=== PATIENT | male | born 1965 | race Caucasian/White ===

== ENCOUNTER 2018-11-27 16:03 | Inpatient (IN) | payer OTHER ==
[2018-11-27] MEDS: hydrALAzine 20 MG INJ IV (17:16)
[2018-11-27] MEDS: NICARDipine HCL 30 MG CAPSULE PO (17:17)
[2018-11-27 17:22] LABS: ADD MAN DIFF? NO
[2018-11-27 17:27] LABS: BASOPHIL # 0.1 10^3/ul (0.0-0.1); BASOPHILS % 0.8 % (0.0-2.0); EOSINOPHILS # 0.4 10^3/ul (0.0-0.5); EOSINOPHILS % 4.1 % (0.0-7.0); HEMATOCRIT 31.7 % (42.0-52.0); HEMOGLOBIN 10.6 g/dl (14.0-18.0); LYMPHOCYTES # 1.6 10^3/ul (0.8-2.9); LYMPHOCYTES % 17.7 % (15.0-51.0); MEAN CORPUSCULAR HEMOGLOBIN 27.7 pg (29.0-33.0); MEAN CORPUSCULAR HGB CONC 33.4 g/dl (32.0-37.0); MEAN PLATELET VOLUME 10.8 fl (7.4-10.4); MONOCYTE # 0.8 10^3/ul (0.3-0.9); MONOCYTES % 8.8 % (0.0-11.0); NEUTROPHIL # 6.2 10^3/ul (1.6-7.5); NEUTROPHILS % 68.1 % (39.0-77.0); PLATELET COUNT 214 10^3/UL (140-415); RED BLOOD COUNT 3.82 10^6/ul (4.70-6.10); RED CELL DISTRIBUTION WIDTH 13.5 % (11.5-14.5)
[2018-11-27 17:27] LABS: WHITE BLOOD COUNT 9.1 10^3/ul (4.8-10.8)
[2018-11-27 17:47] LABS: ALANINE AMINOTRANSFERASE 23 IU/L (13-69); ALBUMIN 2.9 g/dl (3.3-4.9); ALBUMIN/GLOBULIN RATIO 0.82; ALKALINE PHOSPHATASE 165 IU/L (42-121); ANION GAP 1 (5-13); ASPARTATE AMINO TRANSFERASE 35 IU/L (15-46); BILIRUBIN,INDIRECT 0.1 mg/dl (0-1.1); BILIRUBIN,TOTAL 0.1 mg/dl (0.2-1.3); BLOOD UREA NITROGEN 24 mg/dl (7-20); CARBON DIOXIDE 32 mmol/L (21-31); CHLORIDE 106 mmol/L (97-110); CREATININE 2.71 mg/dl (0.61-1.24); Estimated GFR 25 mL/min (>60); GLUCOSE 219 mg/dl (70-220); SODIUM 139 mmol/L (135-144); TOTAL PROTEIN 6.4 g/dl (6.1-8.1)
[2018-11-27 17:59] LABS: TROPONIN-I 0.018 ng/ml (0.000-0.120)
[2018-11-27 18:06] LABS: POTASSIUM 2.6 mmol/L (3.5-5.1)
[2018-11-27] MEDS: POTASSIUM CHLORIDE (SR) 20 MEQ TAB PO (18:19)
[2018-11-27] MEDS: POTASSIUM CHLORIDE 100 ML IVPB (18:19)
[2018-11-27] MEDS ORDERED: ACETAMINOPHEN 325 MG TAB PO (22:30)
[2018-11-27] MEDS ORDERED: ONDANSETRON 4 MG INJ IV (22:30)
[2018-11-27] MEDS ORDERED: DEXTROSE 50% 50 ML SYRINGE IV ×2 (23:45)
[2018-11-27] MEDS ORDERED: GLUCAGON 1 MG INJ IM (23:45)
[2018-11-27] MEDS ORDERED: GLUCOSE GEL 15 GRAM TUBE BUCCAL (23:45)
[2018-11-27] MEDS ORDERED: GLUCOSE GEL 15 GRAM TUBE PO ×2 (23:45)
[2018-11-28] MEDS ORDERED: NACL 0.9% 3 ML SYG IV
[2018-11-28] MEDS ORDERED: HYDROCODONE/APAP (5/325) TAB PO
[2018-11-28 00:26] LABS: ANION GAP 5 (5-13); BLOOD UREA NITROGEN 25 mg/dl (7-20); CALCIUM 7.8 mg/dl (8.4-10.2); CARBON DIOXIDE 29 mmol/L (21-31); CHLORIDE 108 mmol/L (97-110); CREATININE 2.56 mg/dl (0.61-1.24); Estimated GFR 26 mL/min (>60); GLUCOSE 221 mg/dl (70-220); SODIUM 142 mmol/L (135-144)
[2018-11-28 00:37] LABS: TROPONIN-I 0.033 ng/ml (0.000-0.120)
[2018-11-28 00:39] LABS: POTASSIUM 2.9 mmol/L (3.5-5.1)
[2018-11-28] MEDS: POTASSIUM CHLORIDE (SR) 20 MEQ TAB PO ×2 (01:10→08:21)
[2018-11-28] MEDS: INSULIN GLARGINE [LANTus] (100 UNITS/ML) SYG SC ×2 (01:16→20:55)
[2018-11-28] MEDS: NIFEdipine 10 MG CAP PO ×2 (05:35→11:54)
[2018-11-28 06:46] LABS: ADD MAN DIFF? NO
[2018-11-28 06:51] LABS: WHITE BLOOD COUNT 6.9 10^3/ul (4.8-10.8)
[2018-11-28 06:51] LABS: BASOPHIL # 0.1 10^3/ul (0.0-0.1); BASOPHILS % 0.7 % (0.0-2.0); EOSINOPHILS # 0.2 10^3/ul (0.0-0.5); EOSINOPHILS % 3.5 % (0.0-7.0); HEMATOCRIT 27.6 % (42.0-52.0); HEMOGLOBIN 9.1 g/dl (14.0-18.0); LYMPHOCYTES # 1.2 10^3/ul (0.8-2.9); MEAN CORPUSCULAR HEMOGLOBIN 27.7 pg (29.0-33.0); MEAN CORPUSCULAR VOLUME 83.9 fl (82.0-101.0); MEAN PLATELET VOLUME 11.2 fl (7.4-10.4); MONOCYTE # 0.6 10^3/ul (0.3-0.9); NEUTROPHIL # 4.8 10^3/ul (1.6-7.5); NEUTROPHILS % 69.2 % (39.0-77.0); PLATELET COUNT 187 10^3/UL (140-415); RED BLOOD COUNT 3.29 10^6/ul (4.70-6.10); RED CELL DISTRIBUTION WIDTH 13.4 % (11.5-14.5)
[2018-11-28 07:13] LABS: HEMOGLOBIN A1C 8.8 % (0-5.9)
[2018-11-28 07:16] LABS: ALANINE AMINOTRANSFERASE 24 IU/L (13-69); ALBUMIN 2.3 g/dl (3.3-4.9); ALBUMIN/GLOBULIN RATIO 0.76; ALKALINE PHOSPHATASE 122 IU/L (42-121); ANION GAP 4 (5-13); ASPARTATE AMINO TRANSFERASE 23 IU/L (15-46); BILIRUBIN,INDIRECT 0.1 mg/dl (0-1.1); BILIRUBIN,TOTAL 0.1 mg/dl (0.2-1.3); BLOOD UREA NITROGEN 24 mg/dl (7-20); CALCIUM 7.8 mg/dl (8.4-10.2); CARBON DIOXIDE 28 mmol/L (21-31); CHLORIDE 111 mmol/L (97-110); CREATININE 2.75 mg/dl (0.61-1.24); Estimated GFR 24 mL/min (>60); GLUCOSE 165 mg/dl (70-220); SODIUM 143 mmol/L (135-144); TOTAL PROTEIN 5.3 g/dl (6.1-8.1)
[2018-11-28 07:21] LABS: POTASSIUM 2.9 mmol/L (3.5-5.1)
[2018-11-28 07:22] LABS: ADD UMIC YES; UR ASCORBIC ACID NEGATIVE (NEGATIVE); UR BILIRUBIN (Dip) NEGATIVE (NEGATIVE); UR BLOOD (Dip) NEGATIVE (NEGATIVE); UR CLARITY CLEAR (CLEAR); UR COLOR YELLOW (YELLOW); UR GLUCOSE (Dip) 3+ mg/dL (NEGATIVE); UR KETONES (Dip) NEGATIVE (NEGATIVE); UR LEUKOCYTE ESTERASE (Dip) NEGATIVE Leu/ul (NEGATIVE); UR NITRITE (Dip) NEGATIVE (NEGATIVE); UR RBC 3 /HPF (0-5); UR SPECIFIC GRAVITY (Dip) 1.011 (1.003-1.030); UR TOTAL PROTEIN (Dip) 3+ mg/dl (NEGATIVE); UR UROBILINOGEN (Dip) NEGATIVE (NEGATIVE); UR WBC 1 /HPF (0-5)
[2018-11-28 07:24] LABS: IRON 32 ug/dl (35-150)
[2018-11-28 07:33] LABS: % IRON SATURATION 17 % SAT (22-52); TOTAL IRON BINDING CAPACITY 189 ug/dl (241-421)
[2018-11-28] MEDS: MINOXIDIL 2.5 MG TAB PO (08:20)
[2018-11-28] MEDS: INSULIN ASPART [NOVOLOG] 3 ML PEN SC ×7 (08:40→20:43)
[2018-11-28] MEDS: HEPARIN 5,000 UNIT/1 ML VIAL SC ×2 (12:13→20:55)
[2018-11-28] MEDS: MAGNESIUM SULFATE 1 GM/D5W 100 ML IVPB (15:46)
[2018-11-28 18:06] LABS: POTASSIUM 3.1 mmol/L (3.5-5.1)
[2018-11-28 18:06] LABS: MAGNESIUM 2.1 mg/dl (1.7-2.5)
[2018-11-28] MEDS: NIFEdipine (XL) 30 MG TAB PO (20:44)
[2018-11-28 22:54] LABS: ADD UMIC YES; UR ASCORBIC ACID NEGATIVE (NEGATIVE); UR BACTERIA FEW /HPF (NONE SEEN); UR BILIRUBIN (Dip) NEGATIVE (NEGATIVE); UR BLOOD (Dip) NEGATIVE (NEGATIVE); UR CLARITY SLIGHTLY CLOUDY (CLEAR); UR COLOR YELLOW (YELLOW); UR GLUCOSE (Dip) 3+ mg/dL (NEGATIVE); UR KETONES (Dip) NEGATIVE (NEGATIVE); UR LEUKOCYTE ESTERASE (Dip) NEGATIVE Leu/ul (NEGATIVE); UR MUCUS FEW /HPF (NONE SEEN); UR NITRITE (Dip) NEGATIVE (NEGATIVE); UR RBC 6 /HPF (0-5); UR SPECIFIC GRAVITY (Dip) 1.016 (1.003-1.030); UR TOTAL PROTEIN (Dip) 3+ mg/dl (NEGATIVE); UR UROBILINOGEN (Dip) NEGATIVE (NEGATIVE); UR WBC 9 /HPF (0-5)
[2018-11-28 23:01] LABS: SODIUM,URINE RANDOM 38 mmol/L (30-90)
[2018-11-28 23:01] LABS: CREATININE,URINE RANDOM 121.91 mg/dl (20-370)
[2018-11-29 06:56] LABS: ADD MAN DIFF? NO
[2018-11-29 07:02] LABS: BASOPHILS % 0.5 % (0.0-2.0); EOSINOPHILS # 0.2 10^3/ul (0.0-0.5); EOSINOPHILS % 2.8 % (0.0-7.0); HEMATOCRIT 27.8 % (42.0-52.0); HEMOGLOBIN 9.2 g/dl (14.0-18.0); LYMPHOCYTES # 1.4 10^3/ul (0.8-2.9); MEAN CORPUSCULAR HEMOGLOBIN 28.1 pg (29.0-33.0); MEAN CORPUSCULAR HGB CONC 33.1 g/dl (32.0-37.0); MEAN PLATELET VOLUME 11.1 fl (7.4-10.4); MONOCYTE # 0.6 10^3/ul (0.3-0.9); MONOCYTES % 7.6 % (0.0-11.0); NEUTROPHIL # 5.9 10^3/ul (1.6-7.5); NEUTROPHILS % 71.6 % (39.0-77.0); PLATELET COUNT 201 10^3/UL (140-415); RED BLOOD COUNT 3.27 10^6/ul (4.70-6.10); RED CELL DISTRIBUTION WIDTH 13.5 % (11.5-14.5)
[2018-11-29 07:02] LABS: WHITE BLOOD COUNT 8.3 10^3/ul (4.8-10.8)
[2018-11-29 07:37] LABS: PHOSPHORUS 4.1 mg/dl (2.5-4.9)
[2018-11-29 07:38] LABS: CHOL/HDL RATIO 5.4 RATIO; HDL CHOLESTEROL 34 mg/dl (28-71); LDL CHOLESTEROL,CALCULATED 114 mg/dl; TRIGLYCERIDES 188 mg/dl (0-149)
[2018-11-29 07:38] LABS: CHOLESTEROL 186 mg/dl (100-200)
[2018-11-29] MEDS: INSULIN ASPART [NOVOLOG] 3 ML PEN SC ×7 (07:55→20:36)
[2018-11-29 07:59] LABS: ANION GAP 6 (5-13); BLOOD UREA NITROGEN 28 mg/dl (7-20); CALCIUM 8.2 mg/dl (8.4-10.2); CARBON DIOXIDE 27 mmol/L (21-31); CHLORIDE 108 mmol/L (97-110); CREATININE 3.18 mg/dl (0.61-1.24); Estimated GFR 20 mL/min (>60); GLUCOSE 104 mg/dl (70-220); POTASSIUM 3.1 mmol/L (3.5-5.1); SODIUM 141 mmol/L (135-144)
[2018-11-29] MEDS: MINOXIDIL 2.5 MG TAB PO (08:16)
[2018-11-29] MEDS: NIFEdipine (XL) 30 MG TAB PO ×2 (08:17→20:38)
[2018-11-29] MEDS: HEPARIN 5,000 UNIT/1 ML VIAL SC ×2 (09:14→21:01)
[2018-11-29 09:45] LABS: HAAIG REFLEX REFLEX FILED
[2018-11-29 10:20] LABS: COMPLEMENT C3 96 mg/dl (88-165); COMPLEMENT C4 41 mg/dl (14-44)
[2018-11-29 10:47] LABS: HEPATITIS B SURFACE ANTIGEN NEGATIVE (NEGATIVE)
[2018-11-29] MEDS: BUMETANIDE 1 MG TAB PO (10:56)
[2018-11-29] MEDS: POTASSIUM CHLORIDE (SR) 20 MEQ TAB PO ×2 (10:56→22:37)
[2018-11-29 11:04] LABS: HEPATITIS B CORE ANTIBODY NEGATIVE (NEGATIVE); HEPATITIS C VIRAL ANTIBODY NEGATIVE (NEGATIVE)
[2018-11-29 14:14] LABS: POTASSIUM 3.2 mmol/L (3.5-5.1)
[2018-11-29 16:48] LABS: RHEUMATOID FACTOR NEGATIVE (NEGATIVE)
[2018-11-29] MEDS: INSULIN GLARGINE [LANTus] (100 UNITS/ML) SYG SC (20:45)
[2018-11-30 06:06] LABS: ADD MAN DIFF? NO
[2018-11-30 06:25] LABS: BASOPHIL # 0.1 10^3/ul (0.0-0.1); BASOPHILS % 0.6 % (0.0-2.0); EOSINOPHILS % 0.5 % (0.0-7.0); HEMATOCRIT 29.6 % (42.0-52.0); HEMOGLOBIN 9.9 g/dl (14.0-18.0); LYMPHOCYTES % 11.8 % (15.0-51.0); MEAN CORPUSCULAR HGB CONC 33.4 g/dl (32.0-37.0); MEAN CORPUSCULAR VOLUME 83.9 fl (82.0-101.0); MEAN PLATELET VOLUME 10.9 fl (7.4-10.4); MONOCYTE # 0.4 10^3/ul (0.3-0.9); MONOCYTES % 4.2 % (0.0-11.0); NEUTROPHIL # 6.8 10^3/ul (1.6-7.5); NEUTROPHILS % 82.1 % (39.0-77.0); PLATELET COUNT 216 10^3/UL (140-415); RED BLOOD COUNT 3.53 10^6/ul (4.70-6.10); RED CELL DISTRIBUTION WIDTH 13.4 % (11.5-14.5)
[2018-11-30 06:25] LABS: WHITE BLOOD COUNT 8.2 10^3/ul (4.8-10.8)
[2018-11-30 06:28] LABS: PHOSPHORUS 4.9 mg/dl (2.5-4.9)
[2018-11-30 06:28] LABS: MAGNESIUM 1.9 mg/dl (1.7-2.5)
[2018-11-30 06:43] LABS: ALANINE AMINOTRANSFERASE 20 IU/L (13-69); ALBUMIN 2.5 g/dl (3.3-4.9); ALBUMIN/GLOBULIN RATIO 0.78; ALKALINE PHOSPHATASE 128 IU/L (42-121); AMYLASE 50 U/L (11-123); ANION GAP 3 (5-13); ASPARTATE AMINO TRANSFERASE 29 IU/L (15-46); BILIRUBIN,INDIRECT 0.1 mg/dl (0-1.1); BILIRUBIN,TOTAL 0.1 mg/dl (0.2-1.3); BLOOD UREA NITROGEN 32 mg/dl (7-20); CALCIUM 8.4 mg/dl (8.4-10.2); CARBON DIOXIDE 27 mmol/L (21-31); CHLORIDE 107 mmol/L (97-110); CREATININE 3.39 mg/dl (0.61-1.24); Estimated GFR 19 mL/min (>60); GLUCOSE 125 mg/dl (70-220); LIPASE 22 U/L (23-300); POTASSIUM 3.7 mmol/L (3.5-5.1); SODIUM 137 mmol/L (135-144); TOTAL PROTEIN 5.7 g/dl (6.1-8.1)
[2018-11-30] MEDS: INSULIN ASPART [NOVOLOG] 3 ML PEN SC ×7 (07:55→20:51)
[2018-11-30] MEDS: MINOXIDIL 2.5 MG TAB PO (08:21)
[2018-11-30] MEDS: BUMETANIDE 1 MG TAB PO (08:22)
[2018-11-30] MEDS: NIFEdipine (XL) 30 MG TAB PO ×2 (08:22→20:43)
[2018-11-30] MEDS: HEPARIN 5,000 UNIT/1 ML VIAL SC ×2 (08:39→20:49)
[2018-11-30 11:41] LABS: MYELOPEROXIDASE ANTIBODY <1.0 AI; PROTEINASE-3 ANTIBODY <1.0 AI
[2018-11-30] MEDS: INSULIN GLARGINE [LANTus] (100 UNITS/ML) SYG SC (20:49)
[2018-12-01 06:02] LABS: ADD MAN DIFF? NO
[2018-12-01 06:06] LABS: BASOPHILS % 0.4 % (0.0-2.0); EOSINOPHILS # 0.3 10^3/ul (0.0-0.5); EOSINOPHILS % 4.1 % (0.0-7.0); HEMATOCRIT 24.6 % (42.0-52.0); HEMOGLOBIN 8.1 g/dl (14.0-18.0); LYMPHOCYTES # 1.6 10^3/ul (0.8-2.9); LYMPHOCYTES % 21.6 % (15.0-51.0); MEAN CORPUSCULAR HEMOGLOBIN 27.7 pg (29.0-33.0); MEAN CORPUSCULAR HGB CONC 32.9 g/dl (32.0-37.0); MEAN CORPUSCULAR VOLUME 84.2 fl (82.0-101.0); MEAN PLATELET VOLUME 10.4 fl (7.4-10.4); MONOCYTE # 0.8 10^3/ul (0.3-0.9); NEUTROPHIL # 4.8 10^3/ul (1.6-7.5); NEUTROPHILS % 63.6 % (39.0-77.0); PLATELET COUNT 169 10^3/UL (140-415); RED BLOOD COUNT 2.92 10^6/ul (4.70-6.10); RED CELL DISTRIBUTION WIDTH 13.3 % (11.5-14.5)
[2018-12-01 06:06] LABS: WHITE BLOOD COUNT 7.6 10^3/ul (4.8-10.8)
[2018-12-01 06:44] LABS: ANION GAP 4 (5-13); BLOOD UREA NITROGEN 38 mg/dl (7-20); CALCIUM 8.1 mg/dl (8.4-10.2); CARBON DIOXIDE 26 mmol/L (21-31); CHLORIDE 108 mmol/L (97-110); Estimated GFR 20 mL/min (>60); GLUCOSE 106 mg/dl (70-220); POTASSIUM 3.4 mmol/L (3.5-5.1); SODIUM 138 mmol/L (135-144)
[2018-12-01 06:52] LABS: MAGNESIUM 1.9 mg/dl (1.7-2.5)
[2018-12-01 06:52] LABS: PHOSPHORUS 4.7 mg/dl (2.5-4.9)
[2018-12-01] MEDS: POTASSIUM CHLORIDE (SR) 10 MEQ TAB PO (07:32)
[2018-12-01] MEDS: INSULIN ASPART [NOVOLOG] 3 ML PEN SC ×4 (07:32→12:31)
[2018-12-01] MEDS: BUMETANIDE 1 MG TAB PO (08:33)
[2018-12-01] MEDS: NIFEdipine (XL) 30 MG TAB PO (08:34)
[2018-12-01] MEDS: MINOXIDIL 2.5 MG TAB PO (08:34)
[2018-12-01] MEDS: HEPARIN 5,000 UNIT/1 ML VIAL SC (08:42)
[2018-12-02 09:56] LABS: ALDOSTERONE 2 ng/dL; RENIN, PLASMA 0.42 ng/mL/h (0.25-5.82)
[2018-12-02 14:37] LABS: ANA SCREEN NEGATIVE (NEGATIVE)
[2018-12-02 16:06] LABS: CREATININE, RANDOM URINE 121 mg/dL (20-320); MICROALBUMIN/CREATININE RATIO 4950 (<30)
[2018-12-03 13:17] LABS: ANTI-DNA (DOUBLE STRANDED) <95 U/mL (< 301)
[2018-12-03 16:27] LABS: ANCA SCREEN NEGATIVE (NEGATIVE)
== END 2018-12-01 13:47 | disposition home or self-care (01) | DRG 304 ==
LOC: E/R 16:03 → TEL 22:13
PROVIDERS: Internal Medicine
DX: I16.0 Hypertensive urgency (principal); N17.0 Acute kidney failure with tubular necrosis; I12.9 Hypertensive chronic kidney disease with stage 1 through stage 4 chronic kidney disease, or unspecified chronic kidney disease; E11.21 Type 2 diabetes mellitus with diabetic nephropathy; N18.9 Chronic kidney disease, unspecified; E87.6 Hypokalemia; E66.9 Obesity, unspecified; Z68.31 Body mass index [BMI] 31.0-31.9, adult; E11.65 Type 2 diabetes mellitus with hyperglycemia; D50.9 Iron deficiency anemia, unspecified; E11.22 Type 2 diabetes mellitus with diabetic chronic kidney disease; E03.9 Hypothyroidism, unspecified; R07.9 Chest pain, unspecified; R10.9 Unspecified abdominal pain
CPT/HCPCS: 36415; 71045; 76705; 76775; 80048; 80053; 80061; 81001; 81003; 82043; 82088; 82150; 82533; 82595; 82728; 82962; 83036; 83540; 83690; 83735; 84100; 84132; 84155; 84244; 84300; 84484; 85025; 86021; 86038; 86160; 86226; 86430; 86704; 86709; 86803; 87340; 93005; 93306; 93970; 96374; 96375; 99285-25

== ENCOUNTER 2018-12-03 15:39 | Observation (INO) | payer OTHER ==
[2018-12-03 16:40] LABS: ADD MAN DIFF? NO
[2018-12-03 16:44] LABS: WHITE BLOOD COUNT 8.5 10^3/ul (4.8-10.8)
[2018-12-03 16:45] LABS: BASOPHILS % 0.5 % (0.0-2.0); EOSINOPHILS # 0.2 10^3/ul (0.0-0.5); EOSINOPHILS % 2.4 % (0.0-7.0); HEMATOCRIT 27.5 % (42.0-52.0); MEAN CORPUSCULAR HEMOGLOBIN 28.1 pg (29.0-33.0); MEAN CORPUSCULAR HGB CONC 32.7 g/dl (32.0-37.0); MEAN CORPUSCULAR VOLUME 85.9 fl (82.0-101.0); MEAN PLATELET VOLUME 11.1 fl (7.4-10.4); MONOCYTE # 0.9 10^3/ul (0.3-0.9); MONOCYTES % 10.1 % (0.0-11.0); NEUTROPHIL # 6.3 10^3/ul (1.6-7.5); NEUTROPHILS % 74.3 % (39.0-77.0); PLATELET COUNT 179 10^3/UL (140-415); RED CELL DISTRIBUTION WIDTH 13.4 % (11.5-14.5)
[2018-12-03 17:05] LABS: ANION GAP 5 (5-13); BLOOD UREA NITROGEN 44 mg/dl (7-20); CALCIUM 8.4 mg/dl (8.4-10.2); CARBON DIOXIDE 23 mmol/L (21-31); CHLORIDE 110 mmol/L (97-110); CREATININE 3.61 mg/dl (0.61-1.24); Estimated GFR 18 mL/min (>60); GLUCOSE 131 mg/dl (70-220); POTASSIUM 4.1 mmol/L (3.5-5.1); SODIUM 138 mmol/L (135-144)
[2018-12-03 17:26] LABS: INR 1.01; PROTIME 13.4 Sec (11.9-14.9)
[2018-12-03] MEDS ORDERED: hydrALAzine 20 MG INJ IV (19:00)
[2018-12-03] MEDS ORDERED: ACETAMINOPHEN 325 MG TAB PO (19:00)
[2018-12-03] MEDS ORDERED: HYDROCODONE/APAP (5/325) TAB PO (19:00)
[2018-12-03] MEDS ORDERED: morphine 2 MG INJ IV (19:00)
[2018-12-03] MEDS ORDERED: NACL 0.9% 3 ML SYG IV (19:00)
[2018-12-03] MEDS ORDERED: LORAZEPAM 2 MG INJ IV (19:00)
[2018-12-03] MEDS ORDERED: NITROGLYCERIN (SL) 0.4 MG TAB SL (19:00)
[2018-12-03] MEDS ORDERED: MAGNESIUM HYDROXIDE 30ML CUP PO (19:00)
[2018-12-03] MEDS ORDERED: ONDANSETRON 4 MG INJ IV (19:00)
[2018-12-03] MEDS ORDERED: ALBUTEROL/IPRATROPIUM (NEB) 3 ML AMP HHN (19:00)
[2018-12-03] MEDS ORDERED: DOCUSATE SODIUM 100 MG CAP PO (19:00)
[2018-12-03 20:02] LABS: FREE T4 (FREE THYROXINE) 1.26 ng/dl (0.64-1.79)
[2018-12-03] MEDS ORDERED: GLUCOSE GEL 15 GRAM TUBE PO ×2 (23:00)
[2018-12-03] MEDS ORDERED: GLUCOSE GEL 15 GRAM TUBE BUCCAL (23:00)
[2018-12-03] MEDS ORDERED: GLUCAGON 1 MG INJ IM (23:00)
[2018-12-03] MEDS ORDERED: DEXTROSE 50% 50 ML SYRINGE IV ×2 (23:00)
[2018-12-04 06:05] LABS: ADD MAN DIFF? NO
[2018-12-04 06:08] LABS: BASOPHILS % 0.5 % (0.0-2.0); EOSINOPHILS # 0.3 10^3/ul (0.0-0.5); EOSINOPHILS % 5.3 % (0.0-7.0); HEMOGLOBIN 8.2 g/dl (14.0-18.0); LYMPHOCYTES # 1.2 10^3/ul (0.8-2.9); LYMPHOCYTES % 18.1 % (15.0-51.0); MEAN CORPUSCULAR HEMOGLOBIN 27.9 pg (29.0-33.0); MEAN CORPUSCULAR HGB CONC 32.8 g/dl (32.0-37.0); MEAN PLATELET VOLUME 11.2 fl (7.4-10.4); MONOCYTE # 0.8 10^3/ul (0.3-0.9); MONOCYTES % 12.2 % (0.0-11.0); NEUTROPHIL # 4.1 10^3/ul (1.6-7.5); NEUTROPHILS % 63.6 % (39.0-77.0); PLATELET COUNT 164 10^3/UL (140-415); RED BLOOD COUNT 2.94 10^6/ul (4.70-6.10); RED CELL DISTRIBUTION WIDTH 13.6 % (11.5-14.5)
[2018-12-04 06:08] LABS: WHITE BLOOD COUNT 6.5 10^3/ul (4.8-10.8)
[2018-12-04 06:31] LABS: HEMOGLOBIN A1C 8.1 % (0-5.9)
[2018-12-04 07:28] LABS: CHOL/HDL RATIO 5.3 RATIO; HDL CHOLESTEROL 33 mg/dl (28-71); LDL CHOLESTEROL,CALCULATED 108 mg/dl; TRIGLYCERIDES 169 mg/dl (0-149)
[2018-12-04 07:28] LABS: CHOLESTEROL 175 mg/dl (100-200)
[2018-12-04] MEDS: INSULIN ASPART [NOVOLOG] 3 ML PEN SC ×4 (08:00→20:35)
[2018-12-04] MEDS: MINOXIDIL 2.5 MG TAB PO (08:17)
[2018-12-04] MEDS: NIFEdipine (XL) 30 MG TAB PO ×2 (08:17→20:37)
[2018-12-04] MEDS: ASPIRIN (EC) 325 MG TAB PO (08:18)
[2018-12-04] MEDS: FERROUS SULFATE (EC) 325 MG TAB PO ×2 (08:18→20:36)
[2018-12-04 08:24] LABS: ANION GAP 4 (5-13); BLOOD UREA NITROGEN 42 mg/dl (7-20); CALCIUM 8.3 mg/dl (8.4-10.2); CARBON DIOXIDE 24 mmol/L (21-31); CHLORIDE 112 mmol/L (97-110); CREATININE 3.32 mg/dl (0.61-1.24); Estimated GFR 19 mL/min (>60); GLUCOSE 110 mg/dl (70-220); MAGNESIUM 2.1 mg/dl (1.7-2.5); PHOSPHORUS 5.6 mg/dl (2.5-4.9); POTASSIUM 3.7 mmol/L (3.5-5.1); SODIUM 140 mmol/L (135-144)
[2018-12-04] MEDS: BUMETANIDE 1 MG INJ IV (12:26)
[2018-12-04] MEDS: INSULIN GLARGINE [LANTus] (100 UNITS/ML) SYG SC (12:32)
[2018-12-04 16:35] LABS: ADD UMIC YES; UR ASCORBIC ACID NEGATIVE (NEGATIVE); UR BACTERIA FEW /HPF (NONE SEEN); UR BILIRUBIN (Dip) NEGATIVE (NEGATIVE); UR BLOOD (Dip) 1+ mg/dL (NEGATIVE); UR CLARITY CLEAR (CLEAR); UR COLOR STRAW (YELLOW); UR GLUCOSE (Dip) 2+ mg/dL (NEGATIVE); UR KETONES (Dip) NEGATIVE (NEGATIVE); UR LEUKOCYTE ESTERASE (Dip) NEGATIVE Leu/ul (NEGATIVE); UR NITRITE (Dip) NEGATIVE (NEGATIVE); UR RBC 6 /HPF (0-5); UR SPECIFIC GRAVITY (Dip) 1.009 (1.003-1.030); UR TOTAL PROTEIN (Dip) 2+ mg/dl (NEGATIVE); UR UROBILINOGEN (Dip) NEGATIVE (NEGATIVE); UR WBC 1 /HPF (0-5)
[2018-12-04 16:46] LABS: SODIUM,URINE RANDOM 94 mmol/L (30-90)
[2018-12-04 16:46] LABS: CREATININE,URINE RANDOM 37.41 mg/dl (20-370)
[2018-12-05 06:18] LABS: ADD MAN DIFF? NO
[2018-12-05 06:34] LABS: BASOPHILS % 0.4 % (0.0-2.0); EOSINOPHILS # 0.3 10^3/ul (0.0-0.5); HEMATOCRIT 23.7 % (42.0-52.0); HEMOGLOBIN 7.8 g/dl (14.0-18.0); LYMPHOCYTES # 1.3 10^3/ul (0.8-2.9); LYMPHOCYTES % 17.6 % (15.0-51.0); MEAN CORPUSCULAR HEMOGLOBIN 28.5 pg (29.0-33.0); MEAN CORPUSCULAR HGB CONC 32.9 g/dl (32.0-37.0); MEAN CORPUSCULAR VOLUME 86.5 fl (82.0-101.0); MEAN PLATELET VOLUME 11.2 fl (7.4-10.4); MONOCYTE # 0.8 10^3/ul (0.3-0.9); MONOCYTES % 11.5 % (0.0-11.0); NEUTROPHIL # 4.7 10^3/ul (1.6-7.5); NEUTROPHILS % 65.8 % (39.0-77.0); PLATELET COUNT 173 10^3/UL (140-415); RED BLOOD COUNT 2.74 10^6/ul (4.70-6.10); RED CELL DISTRIBUTION WIDTH 13.5 % (11.5-14.5)
[2018-12-05 06:34] LABS: WHITE BLOOD COUNT 7.2 10^3/ul (4.8-10.8)
[2018-12-05 07:01] LABS: ANION GAP 6 (5-13); BLOOD UREA NITROGEN 41 mg/dl (7-20); CALCIUM 8.1 mg/dl (8.4-10.2); CARBON DIOXIDE 26 mmol/L (21-31); CHLORIDE 108 mmol/L (97-110); CREATININE 3.34 mg/dl (0.61-1.24); Estimated GFR 19 mL/min (>60); GLUCOSE 92 mg/dl (70-220); POTASSIUM 3.6 mmol/L (3.5-5.1); SODIUM 140 mmol/L (135-144)
[2018-12-05] MEDS: INSULIN ASPART [NOVOLOG] 3 ML PEN SC (07:46)
[2018-12-05] MEDS: INSULIN GLARGINE [LANTus] (100 UNITS/ML) SYG SC (08:06)
[2018-12-05] MEDS: FERROUS SULFATE (EC) 325 MG TAB PO (08:29)
[2018-12-05] MEDS: ASPIRIN (EC) 325 MG TAB PO (08:30)
[2018-12-05] MEDS: NIFEdipine (XL) 30 MG TAB PO (08:31)
[2018-12-05] MEDS: MINOXIDIL 2.5 MG TAB PO (08:31)
[2018-12-05] MEDS: BUMETANIDE 1 MG INJ IV (08:32)
[2018-12-05] MEDS: HEPARIN 5,000 UNIT/1 ML VIAL SC (08:40)
[2018-12-05] MEDS: LISINOPRIL 5 MG TAB PO (08:58)
[2018-12-05 16:36] LABS: CREATININE, RANDOM URINE 40 mg/dL (20-320); MICROALBUMIN 136.2 mg/dL; MICROALBUMIN/CREATININE RATIO 3405 (<30)
== END 2018-12-05 11:10 | disposition home or self-care (01) ==
LOC: E/R 15:39 → 6WM 18:54
PROVIDERS: Internal Medicine
DX: R55 Syncope and collapse (principal); H54.7 Unspecified visual loss; H53.9 Unspecified visual disturbance; I12.9 Hypertensive chronic kidney disease with stage 1 through stage 4 chronic kidney disease, or unspecified chronic kidney disease; N18.4 Chronic kidney disease, stage 4 (severe); E11.21 Type 2 diabetes mellitus with diabetic nephropathy; D63.1 Anemia in chronic kidney disease
CPT/HCPCS: 36415; 70450; 70551; 76536; 80048; 80061; 81001; 81003; 82043; 82962; 83036; 83735; 84100; 84155; 84300; 84439; 84443; 85025; 85610; 85730; 92610; 93005; 93880; 95819; 97116; 97162; 97166; 99285-25; G0378

== ENCOUNTER 2019-04-27 00:27 | Inpatient (IN) | payer OTHER ==
[2019-04-27 01:11] LABS: ADD MAN DIFF? NO
[2019-04-27 01:21] LABS: ALANINE AMINOTRANSFERASE 17 IU/L (13-69); ALBUMIN 2.3 g/dl (3.3-4.9); ALBUMIN/GLOBULIN RATIO 0.71; ALKALINE PHOSPHATASE 116 IU/L (42-121); ANION GAP 5 (5-13); ASPARTATE AMINO TRANSFERASE 25 IU/L (15-46); BILIRUBIN,INDIRECT 0.3 mg/dl (0-1.1); BILIRUBIN,TOTAL 0.3 mg/dl (0.2-1.3); BLOOD UREA NITROGEN 9 mg/dl (7-20); CALCIUM 8.1 mg/dl (8.4-10.2); CARBON DIOXIDE 25 mmol/L (21-31); CHLORIDE 107 mmol/L (97-110); CREATININE 1.97 mg/dl (0.61-1.24); Estimated GFR 35 mL/min (>60); GLUCOSE 90 mg/dl (70-220); LIPASE 14 U/L (23-300); SODIUM 137 mmol/L (135-144); TOTAL PROTEIN 5.5 g/dl (6.1-8.1)
[2019-04-27 01:33] LABS: B-TYPE NATRIURETIC PEPTIDE 7980 PG/ML (0-125); TROPONIN-I < 0.012 ng/ml (0.000-0.120)
[2019-04-27 01:49] LABS: BASOPHIL # 0.1 10^3/ul (0.0-0.1); BASOPHILS % 0.9 % (0.0-2.0); EOSINOPHILS # 0.2 10^3/ul (0.0-0.5); EOSINOPHILS % 3.8 % (0.0-7.0); HEMOGLOBIN 8.8 g/dl (14.0-18.0); LYMPHOCYTES # 0.7 10^3/ul (0.8-2.9); LYMPHOCYTES % 13.2 % (15.0-51.0); MEAN CORPUSCULAR HEMOGLOBIN 28.2 pg (29.0-33.0); MEAN CORPUSCULAR HGB CONC 32.6 g/dl (32.0-37.0); MEAN CORPUSCULAR VOLUME 86.5 fl (82.0-101.0); MEAN PLATELET VOLUME 9.9 fl (7.4-10.4); MONOCYTE # 0.7 10^3/ul (0.3-0.9); MONOCYTES % 11.8 % (0.0-11.0); NEUTROPHIL # 3.9 10^3/ul (1.6-7.5); NEUTROPHILS % 69.6 % (39.0-77.0); PLATELET COUNT 141 10^3/UL (140-415); RED BLOOD COUNT 3.12 10^6/ul (4.70-6.10); RED CELL DISTRIBUTION WIDTH 14.7 % (11.5-14.5)
[2019-04-27 01:49] LABS: WHITE BLOOD COUNT 5.5 10^3/ul (4.8-10.8)
[2019-04-27] MEDS ORDERED: ACETAMINOPHEN 325 MG TAB PO (04:30)
[2019-04-27] MEDS ORDERED: ALBUTEROL/IPRATROPIUM (NEB) 3 ML AMP HHN (04:30)
[2019-04-27] MEDS ORDERED: NACL 0.9% 3 ML SYG IV (04:30)
[2019-04-27] MEDS ORDERED: ONDANSETRON 4 MG INJ IV (04:30)
[2019-04-27] MEDS ORDERED: NITROGLYCERIN (SL) 0.4 MG TAB SL (04:30)
[2019-04-27 06:36] LABS: CREATINE KINASE 107 IU/L (23-200)
[2019-04-27 06:48] LABS: CK INDEX 2.6; CK-MB 2.76 ng/ml (0.0-2.4); TROPONIN-I < 0.012 ng/ml (0.000-0.120)
[2019-04-27 08:56] LABS: CREATINE KINASE 98 IU/L (23-200)
[2019-04-27] MEDS ORDERED: ASPIRIN (EC) 81 MG TAB PO (09:00)
[2019-04-27 09:08] LABS: CK INDEX 2.6; TROPONIN-I 0.014 ng/ml (0.000-0.120)
[2019-04-27 09:11] LABS: CK-MB 2.57 ng/ml (0.0-2.4)
[2019-04-27] MEDS: HEPARIN 5,000 UNIT/1 ML VIAL SC ×2 (10:00→20:40)
[2019-04-27] MEDS: FERROUS SULFATE (EC) 325 MG TAB PO ×2 (10:01→20:37)
[2019-04-27] MEDS: LISINOPRIL 5 MG TAB PO (10:02)
[2019-04-27] MEDS: NIFEdipine (XL) 30 MG TAB PO ×2 (10:02→20:37)
[2019-04-27] MEDS: MINOXIDIL 2.5 MG TAB PO (10:02)
[2019-04-27 11:52] LABS: INR 1.14; PROTIME 14.7 Sec (11.9-14.9); PT RATIO 1.1
[2019-04-27 11:53] LABS: PARTIAL THROMBOPLASTIN TIME 44.5 Sec (23.0-35.0)
[2019-04-27 16:40] LABS: ADD UMIC YES; UR ASCORBIC ACID NEGATIVE (NEGATIVE); UR BACTERIA FEW /HPF (NONE SEEN); UR BILIRUBIN (Dip) NEGATIVE (NEGATIVE); UR BLOOD (Dip) 1+ mg/dL (NEGATIVE); UR CLARITY TURBID (CLEAR); UR COLOR YELLOW (YELLOW); UR GLUCOSE (Dip) NEGATIVE (NEGATIVE); UR KETONES (Dip) TRACE mg/dL (NEGATIVE); UR LEUKOCYTE ESTERASE (Dip) 2+ Leu/ul (NEGATIVE); UR NITRITE (Dip) NEGATIVE (NEGATIVE); UR NONSQUAMOUS EPITHELIAL CELL 10 /HPF (NONE SEEN); UR RBC 30 /HPF (0-5); UR SPECIFIC GRAVITY (Dip) 1.016 (1.003-1.030); UR SQUAMOUS EPITHELIAL CELL MODERATE /HPF (FEW); UR TOTAL PROTEIN (Dip) 3+ mg/dl (NEGATIVE); UR UROBILINOGEN (Dip) NEGATIVE (NEGATIVE); UR WBC > 182 /HPF (0-5)
[2019-04-28] MEDS: HYDROCODONE/APAP (5/325) TAB PO ×2 (04:30→17:45)
[2019-04-28 05:44] LABS: ADD MAN DIFF? NO
[2019-04-28 05:49] LABS: WHITE BLOOD COUNT 5.1 10^3/ul (4.8-10.8)
[2019-04-28 05:50] LABS: BASOPHIL # 0.1 10^3/ul (0.0-0.1); EOSINOPHILS # 0.2 10^3/ul (0.0-0.5); EOSINOPHILS % 4.1 % (0.0-7.0); HEMATOCRIT 26.3 % (42.0-52.0); HEMOGLOBIN 8.5 g/dl (14.0-18.0); LYMPHOCYTES # 0.8 10^3/ul (0.8-2.9); LYMPHOCYTES % 16.4 % (15.0-51.0); MEAN CORPUSCULAR HEMOGLOBIN 28.1 pg (29.0-33.0); MEAN CORPUSCULAR HGB CONC 32.3 g/dl (32.0-37.0); MEAN CORPUSCULAR VOLUME 87.1 fl (82.0-101.0); MEAN PLATELET VOLUME 10.4 fl (7.4-10.4); MONOCYTE # 0.6 10^3/ul (0.3-0.9); MONOCYTES % 11.4 % (0.0-11.0); NEUTROPHIL # 3.4 10^3/ul (1.6-7.5); NEUTROPHILS % 66.3 % (39.0-77.0); PLATELET COUNT 146 10^3/UL (140-415); RED BLOOD COUNT 3.02 10^6/ul (4.70-6.10); RED CELL DISTRIBUTION WIDTH 14.6 % (11.5-14.5)
[2019-04-28 05:56] LABS: HEMOGLOBIN A1C 5.3 % (0-5.9)
[2019-04-28 06:12] LABS: ALANINE AMINOTRANSFERASE 16 IU/L (13-69); ALBUMIN 2.3 g/dl (3.3-4.9); ALBUMIN/GLOBULIN RATIO 0.74; ALKALINE PHOSPHATASE 108 IU/L (42-121); ANION GAP 7 (5-13); ASPARTATE AMINO TRANSFERASE 25 IU/L (15-46); BILIRUBIN,INDIRECT 0.2 mg/dl (0-1.1); BILIRUBIN,TOTAL 0.2 mg/dl (0.2-1.3); BLOOD UREA NITROGEN 11 mg/dl (7-20); CALCIUM 7.9 mg/dl (8.4-10.2); CARBON DIOXIDE 24 mmol/L (21-31); CHLORIDE 108 mmol/L (97-110); CHOL/HDL RATIO 6.6 RATIO; CHOLESTEROL 172 mg/dl (100-200); CREATININE 2.54 mg/dl (0.61-1.24); Estimated GFR 26 mL/min (>60); GLUCOSE 70 mg/dl (70-220); HDL CHOLESTEROL 26 mg/dl (28-71); LDL CHOLESTEROL,CALCULATED 113 mg/dl; MAGNESIUM 1.7 mg/dl (1.7-2.5); POTASSIUM 3.8 mmol/L (3.5-5.1); SODIUM 139 mmol/L (135-144); TOTAL PROTEIN 5.4 g/dl (6.1-8.1); TRIGLYCERIDES 164 mg/dl (0-149)
[2019-04-28 06:24] LABS: CREATINE KINASE 113 IU/L (23-200)
[2019-04-28] MEDS: LISINOPRIL 5 MG TAB PO (08:45)
[2019-04-28] MEDS: NIFEdipine (XL) 30 MG TAB PO ×2 (08:45→22:06)
[2019-04-28] MEDS: FERROUS SULFATE (EC) 325 MG TAB PO ×2 (08:45→22:06)
[2019-04-28] MEDS: MINOXIDIL 2.5 MG TAB PO (08:45)
[2019-04-28 09:10] LABS: SODIUM,URINE RANDOM 29 mmol/L (30-90)
[2019-04-28 09:12] LABS: CREATININE,URINE RANDOM 123.31 mg/dl (20-370)
[2019-04-28 10:37] LABS: PROTEIN/CREAT RATIO 4.86 RATIO
[2019-04-28] MEDS: SOD CHLORIDE 0.9% 1,000 ML IV (13:02)
[2019-04-28] MEDS: GABAPENTIN 100 MG CAP PO ×2 (13:02→21:00)
[2019-04-28] MEDS: CEFTRIAXONE 2 GM/50 ML (PMX) 50 ML IVPB (13:03)
[2019-04-28] MEDS: ATORVASTATIN 40 MG TAB PO (22:06)
[2019-04-29] MEDS: SOD CHLORIDE 0.9% 1,000 ML IV ×2 (00:20→05:37)
[2019-04-29 05:03] LABS: ADD MAN DIFF? NO
[2019-04-29 05:06] LABS: WHITE BLOOD COUNT 4.7 10^3/ul (4.8-10.8)
[2019-04-29 05:06] LABS: BASOPHILS % 0.8 % (0.0-2.0); EOSINOPHILS # 0.2 10^3/ul (0.0-0.5); EOSINOPHILS % 4.6 % (0.0-7.0); HEMOGLOBIN 8.1 g/dl (14.0-18.0); LYMPHOCYTES # 0.9 10^3/ul (0.8-2.9); LYMPHOCYTES % 19.8 % (15.0-51.0); MEAN CORPUSCULAR HEMOGLOBIN 28.4 pg (29.0-33.0); MEAN CORPUSCULAR HGB CONC 32.4 g/dl (32.0-37.0); MEAN CORPUSCULAR VOLUME 87.7 fl (82.0-101.0); MEAN PLATELET VOLUME 10.1 fl (7.4-10.4); MONOCYTE # 0.6 10^3/ul (0.3-0.9); MONOCYTES % 13.3 % (0.0-11.0); NEUTROPHIL # 2.9 10^3/ul (1.6-7.5); NEUTROPHILS % 61.1 % (39.0-77.0); PLATELET COUNT 139 10^3/UL (140-415); RED BLOOD COUNT 2.85 10^6/ul (4.70-6.10); RED CELL DISTRIBUTION WIDTH 14.4 % (11.5-14.5)
[2019-04-29 05:24] LABS: MAGNESIUM 1.8 mg/dl (1.7-2.5)
[2019-04-29 05:24] LABS: PHOSPHORUS 3.8 mg/dl (2.5-4.9)
[2019-04-29 06:34] LABS: ANION GAP 6 (5-13); BLOOD UREA NITROGEN 15 mg/dl (7-20); CALCIUM 7.6 mg/dl (8.4-10.2); CARBON DIOXIDE 23 mmol/L (21-31); CHLORIDE 110 mmol/L (97-110); CREATININE 3.11 mg/dl (0.61-1.24); Estimated GFR 21 mL/min (>60); GLUCOSE 86 mg/dl (70-220); POTASSIUM 3.9 mmol/L (3.5-5.1); SODIUM 139 mmol/L (135-144)
[2019-04-29] MEDS: HYDROCODONE/APAP (5/325) TAB PO (08:20)
[2019-04-29] MEDS ORDERED: SODIUM CHLORIDE 0.9% 1L BAG IV (09:30)
[2019-04-29 09:50] LABS: PROSTATE SPECIFIC ANTIGEN 1.4 ng/ml (0.0-4.0)
[2019-04-29] MEDS: morphine 2 MG INJ IV ×3 (09:50→23:13)
[2019-04-29] MEDS: NIFEdipine (XL) 30 MG TAB PO ×2 (09:51→21:25)
[2019-04-29] MEDS: GABAPENTIN 100 MG CAP PO ×3 (09:51→21:24)
[2019-04-29] MEDS: MINOXIDIL 2.5 MG TAB PO (09:51)
[2019-04-29] MEDS: FERROUS SULFATE (EC) 325 MG TAB PO ×2 (09:51→21:24)
[2019-04-29] MEDS: MUPIROCIN 2% 22 GM OINT TOP ×2 (10:30→21:25)
[2019-04-29] MEDS: CEFTRIAXONE 2 GM/50 ML (PMX) 50 ML IVPB (12:03)
[2019-04-29 13:40] LABS: HEPATITIS B SURFACE ANTIGEN NEGATIVE (NEGATIVE)
[2019-04-29 13:57] LABS: HEPATITIS B SURFACE ANTIBODY NEGATIVE (NEGATIVE)
[2019-04-29] MEDS: HEPARIN 1000 UNITS/ML 10 ML INJ CATHETER (18:13)
[2019-04-29] MEDS: ATORVASTATIN 40 MG TAB PO (21:24)
[2019-04-30 05:00] LABS: ADD MAN DIFF? NO
[2019-04-30 05:06] LABS: WHITE BLOOD COUNT 4.6 10^3/ul (4.8-10.8)
[2019-04-30 05:06] LABS: BASOPHILS % 0.9 % (0.0-2.0); EOSINOPHILS # 0.4 10^3/ul (0.0-0.5); EOSINOPHILS % 7.6 % (0.0-7.0); HEMATOCRIT 27.2 % (42.0-52.0); HEMOGLOBIN 8.9 g/dl (14.0-18.0); LYMPHOCYTES # 0.9 10^3/ul (0.8-2.9); LYMPHOCYTES % 19.6 % (15.0-51.0); MEAN CORPUSCULAR HEMOGLOBIN 28.3 pg (29.0-33.0); MEAN CORPUSCULAR HGB CONC 32.7 g/dl (32.0-37.0); MEAN CORPUSCULAR VOLUME 86.6 fl (82.0-101.0); MEAN PLATELET VOLUME 9.7 fl (7.4-10.4); MONOCYTE # 0.7 10^3/ul (0.3-0.9); MONOCYTES % 14.6 % (0.0-11.0); NEUTROPHIL # 2.6 10^3/ul (1.6-7.5); NEUTROPHILS % 56.6 % (39.0-77.0); PLATELET COUNT 129 10^3/UL (140-415); RED BLOOD COUNT 3.14 10^6/ul (4.70-6.10); RED CELL DISTRIBUTION WIDTH 14.3 % (11.5-14.5)
[2019-04-30 05:22] LABS: MAGNESIUM 1.8 mg/dl (1.7-2.5)
[2019-04-30 05:29] LABS: ANION GAP 2 (5-13); BLOOD UREA NITROGEN 9 mg/dl (7-20); CALCIUM 7.6 mg/dl (8.4-10.2); CARBON DIOXIDE 30 mmol/L (21-31); CHLORIDE 107 mmol/L (97-110); CREATININE 2.22 mg/dl (0.61-1.24); Estimated GFR 31 mL/min (>60); GLUCOSE 86 mg/dl (70-220); POTASSIUM 3.9 mmol/L (3.5-5.1); SODIUM 139 mmol/L (135-144)
[2019-04-30] MEDS: morphine 2 MG INJ IV ×2 (07:15→14:25)
[2019-04-30] MEDS ORDERED: HEPARIN 1000 UNITS/ML 10 ML INJ HE (08:00)
[2019-04-30] MEDS: HEPARIN 1000 UNITS/ML 10 ML INJ HE ×2 (08:08→08:09)
[2019-04-30] MEDS: MUPIROCIN 2% 22 GM OINT TOP ×2 (09:00→21:31)
[2019-04-30] MEDS ORDERED: BISACODYL (EC) 5 MG TAB PO (09:00)
[2019-04-30] MEDS: GABAPENTIN 100 MG CAP PO ×3 (09:00→21:31)
[2019-04-30] MEDS: ALBUMIN HUMAN 25% 100 ML IV (09:14)
[2019-04-30] MEDS: HEPARIN 1000 UNITS/ML 10 ML INJ CATHETER (11:22)
[2019-04-30] MEDS: FERROUS SULFATE (EC) 325 MG TAB PO ×2 (11:32→21:31)
[2019-04-30] MEDS: POLYETHYLENE GLYCOL 17 GM PACKET PO ×2 (11:33→21:30)
[2019-04-30] MEDS: NIFEdipine (XL) 30 MG TAB PO ×2 (11:33→21:30)
[2019-04-30] MEDS: MINOXIDIL 2.5 MG TAB PO (11:33)
[2019-04-30] MEDS: LEVOFLOXACIN 750MG/D5W (PMX) 150 ML IVPB (11:34)
[2019-04-30] MEDS: HALOPERIDOL 5 MG INJ IM (15:12)
[2019-04-30] MEDS: HYDROCODONE/APAP (5/325) TAB PO (16:12)
[2019-04-30] MEDS: ATORVASTATIN 40 MG TAB PO (21:31)
[2019-05-01] MEDS: ZOLPIDEM 5 MG TAB PO (00:28)
[2019-05-01] MEDS: LORAZEPAM 2 MG INJ IV (03:01)
[2019-05-01 05:11] LABS: ADD MAN DIFF? NO
[2019-05-01 05:12] LABS: BASOPHILS % 0.4 % (0.0-2.0); EOSINOPHILS # 0.4 10^3/ul (0.0-0.5); EOSINOPHILS % 8.5 % (0.0-7.0); HEMATOCRIT 26.9 % (42.0-52.0); HEMOGLOBIN 8.7 g/dl (14.0-18.0); LYMPHOCYTES # 0.8 10^3/ul (0.8-2.9); MEAN CORPUSCULAR HEMOGLOBIN 27.8 pg (29.0-33.0); MEAN CORPUSCULAR HGB CONC 32.3 g/dl (32.0-37.0); MEAN CORPUSCULAR VOLUME 85.9 fl (82.0-101.0); MEAN PLATELET VOLUME 10.4 fl (7.4-10.4); MONOCYTE # 0.8 10^3/ul (0.3-0.9); MONOCYTES % 15.8 % (0.0-11.0); NEUTROPHIL # 2.8 10^3/ul (1.6-7.5); NEUTROPHILS % 57.7 % (39.0-77.0); PLATELET COUNT 130 10^3/UL (140-415); RED BLOOD COUNT 3.13 10^6/ul (4.70-6.10); RED CELL DISTRIBUTION WIDTH 14.3 % (11.5-14.5)
[2019-05-01 05:12] LABS: WHITE BLOOD COUNT 4.8 10^3/ul (4.8-10.8)
[2019-05-01 05:40] LABS: ANION GAP 2 (5-13); BLOOD UREA NITROGEN 8 mg/dl (7-20); CALCIUM 7.8 mg/dl (8.4-10.2); CARBON DIOXIDE 31 mmol/L (21-31); CHLORIDE 106 mmol/L (97-110); CREATININE 2.18 mg/dl (0.61-1.24); Estimated GFR 31 mL/min (>60); GLUCOSE 81 mg/dl (70-220); SODIUM 139 mmol/L (135-144)
[2019-05-01 05:44] LABS: MAGNESIUM 1.8 mg/dl (1.7-2.5)
[2019-05-01 05:44] LABS: PHOSPHORUS 2.8 mg/dl (2.5-4.9)
[2019-05-01] MEDS: NIFEdipine (XL) 30 MG TAB PO (09:00)
[2019-05-01] MEDS: GABAPENTIN 100 MG CAP PO ×2 (09:00→13:00)
[2019-05-01] MEDS: MINOXIDIL 2.5 MG TAB PO (09:00)
[2019-05-01] MEDS: FERROUS SULFATE (EC) 325 MG TAB PO (09:00)
[2019-05-01] MEDS: MUPIROCIN 2% 22 GM OINT TOP (09:01)
[2019-05-01] MEDS: POLYETHYLENE GLYCOL 17 GM PACKET PO (09:01)
[2019-05-02] MEDS ORDERED: ASPIRIN (EC) 81 MG TAB PO (09:00)
[2019-05-02] MEDS ORDERED: LEVOFLOXACIN 500MG/D5W (PMX) 100 ML IVPB (10:00)
[2019-05-02] MEDS ORDERED: LEVOFLOXACIN 750 MG TABLET PO (12:00)
== END 2019-05-01 18:51 | DRG 291 ==
LOC: MS1 03:02 → E/R 00:27 → 6WM 01:53
DX: I13.2 Hypertensive heart and chronic kidney disease with heart failure and with stage 5 chronic kidney disease, or end stage renal disease (principal); I50.33 Acute on chronic diastolic (congestive) heart failure; I63.511 Cerebral infarction due to unspecified occlusion or stenosis of right middle cerebral artery; I61.4 Nontraumatic intracerebral hemorrhage in cerebellum; N18.6 End stage renal disease; N17.9 Acute kidney failure, unspecified; N39.0 Urinary tract infection, site not specified; I69.254 Hemiplegia and hemiparesis following other nontraumatic intracranial hemorrhage affecting left non-dominant side; D63.8 Anemia in other chronic diseases classified elsewhere; E11.22 Type 2 diabetes mellitus with diabetic chronic kidney disease; E78.5 Hyperlipidemia, unspecified; E66.9 Obesity, unspecified; F17.200 Nicotine dependence, unspecified, uncomplicated; I25.10 Atherosclerotic heart disease of native coronary artery without angina pectoris; I25.2 Old myocardial infarction; I69.391 Dysphagia following cerebral infarction; R13.10 Dysphagia, unspecified; R07.89 Other chest pain; B96.89 Other specified bacterial agents as the cause of diseases classified elsewhere; Z22.322 Carrier or suspected carrier of Methicillin resistant Staphylococcus aureus; Z68.30 Body mass index [BMI] 30.0-30.9, adult; Z74.01 Bed confinement status; Z79.82 Long term (current) use of aspirin; Z79.84 Long term (current) use of oral hypoglycemic drugs
CPT/HCPCS: 36415; 70450; 71045; 74181; 76705; 76775; 80048; 80053; 80061; 81001; 81003; 82550; 82553; 82570; 82962; 83036; 83690; 83735; 83880; 84100; 84153; 84154; 84300; 84484; 84560; 85025; 85610; 85730; 86706; 87081; 87086; 87340; 89190; 90935; 92610; 93005; 93306; 93971; 97110; 97163; 97167; 97530; 97535; 99285-25

== ENCOUNTER 2019-05-06 18:46 | Observation (INO) | payer OTHER ==
[2019-05-06 19:12] LABS: ADD MAN DIFF? NO; URINE BLOOD (Dip) POC Trace-intact (NEGATIVE); URINE KETONES (Dip) POC Trace (NEGATIVE); URINE LEUKOCYTE EST (Dip) POC Negative (NEGATIVE); URINE NITRITE (Dip) POC Negative (NEGATIVE); URINE TOTAL PROTEIN POC 3+ (NEGATIVE)
[2019-05-06 19:22] LABS: BASOPHILS % 0.4 % (0.0-2.0); EOSINOPHILS # 0.6 10^3/ul (0.0-0.5); EOSINOPHILS % 8.1 % (0.0-7.0); HEMATOCRIT 25.6 % (42.0-52.0); HEMOGLOBIN 8.2 g/dl (14.0-18.0); LYMPHOCYTES # 0.9 10^3/ul (0.8-2.9); LYMPHOCYTES % 12.3 % (15.0-51.0); MEAN CORPUSCULAR VOLUME 87.4 fl (82.0-101.0); MEAN PLATELET VOLUME 10.1 fl (7.4-10.4); MONOCYTE # 0.7 10^3/ul (0.3-0.9); MONOCYTES % 9.5 % (0.0-11.0); NEUTROPHIL # 4.8 10^3/ul (1.6-7.5); NEUTROPHILS % 68.4 % (39.0-77.0); PLATELET COUNT 128 10^3/UL (140-415); RED BLOOD COUNT 2.93 10^6/ul (4.70-6.10); RED CELL DISTRIBUTION WIDTH 14.1 % (11.5-14.5)
[2019-05-06 19:22] LABS: WHITE BLOOD COUNT 7.1 10^3/ul (4.8-10.8)
[2019-05-06 19:43] LABS: ANION GAP 4 (5-13); BLOOD UREA NITROGEN 16 mg/dl (7-20); CALCIUM 8.2 mg/dl (8.4-10.2); CARBON DIOXIDE 26 mmol/L (21-31); CHLORIDE 107 mmol/L (97-110); CREATININE 4.44 mg/dl (0.61-1.24); Estimated GFR 14 mL/min (>60); GLUCOSE 75 mg/dl (70-220); POTASSIUM 4.4 mmol/L (3.5-5.1); SODIUM 137 mmol/L (135-144)
[2019-05-06 19:44] LABS: INR 1.22; PROTIME 15.5 Sec (11.9-14.9); PT RATIO 1.2
[2019-05-06 19:49] LABS: PARTIAL THROMBOPLASTIN TIME 77.4 Sec (23.0-35.0)
[2019-05-06 19:55] LABS: TROPONIN-I < 0.012 ng/ml (0.000-0.120)
[2019-05-06] MEDS: CEFTRIAXONE 1 GM/50 ML (PMX) 50 ML IVPB (21:13)
[2019-05-06] MEDS: VANCOMYCIN 1 GM (PMX) 250 ML IVPB (21:34)
[2019-05-06] MEDS: HYDROCODONE/APAP (5/325) TAB PO (22:45)
[2019-05-07] MEDS ORDERED: ONDANSETRON 4 MG INJ IV (00:30)
[2019-05-07] MEDS ORDERED: NACL 0.9% 3 ML SYG IV (00:30)
[2019-05-07] MEDS ORDERED: ALBUTEROL/IPRATROPIUM (NEB) 3 ML AMP HHN (00:30)
[2019-05-07 06:52] LABS: ADD MAN DIFF? NO
[2019-05-07 07:00] LABS: BASOPHIL # 0.1 10^3/ul (0.0-0.1); BASOPHILS % 0.7 % (0.0-2.0); EOSINOPHILS # 0.6 10^3/ul (0.0-0.5); EOSINOPHILS % 8.7 % (0.0-7.0); HEMATOCRIT 27.3 % (42.0-52.0); HEMOGLOBIN 8.8 g/dl (14.0-18.0); LYMPHOCYTES # 0.8 10^3/ul (0.8-2.9); LYMPHOCYTES % 11.9 % (15.0-51.0); MEAN CORPUSCULAR HEMOGLOBIN 28.3 pg (29.0-33.0); MEAN CORPUSCULAR HGB CONC 32.2 g/dl (32.0-37.0); MEAN CORPUSCULAR VOLUME 87.8 fl (82.0-101.0); MEAN PLATELET VOLUME 10.4 fl (7.4-10.4); MONOCYTE # 0.7 10^3/ul (0.3-0.9); MONOCYTES % 10.2 % (0.0-11.0); NEUTROPHIL # 4.7 10^3/ul (1.6-7.5); NEUTROPHILS % 66.8 % (39.0-77.0); PLATELET COUNT 133 10^3/UL (140-415); RED BLOOD COUNT 3.11 10^6/ul (4.70-6.10); RED CELL DISTRIBUTION WIDTH 14.1 % (11.5-14.5)
[2019-05-07 07:35] LABS: ALANINE AMINOTRANSFERASE 17 IU/L (13-69); ALBUMIN 2.6 g/dl (3.3-4.9); ALBUMIN/GLOBULIN RATIO 0.74; ALKALINE PHOSPHATASE 125 IU/L (42-121); ANION GAP 7 (5-13); ASPARTATE AMINO TRANSFERASE 27 IU/L (15-46); BILIRUBIN,INDIRECT 0.2 mg/dl (0-1.1); BILIRUBIN,TOTAL 0.2 mg/dl (0.2-1.3); BLOOD UREA NITROGEN 18 mg/dl (7-20); CALCIUM 8.5 mg/dl (8.4-10.2); CARBON DIOXIDE 25 mmol/L (21-31); CHLORIDE 107 mmol/L (97-110); CREATININE 4.54 mg/dl (0.61-1.24); Estimated GFR 13 mL/min (>60); GLUCOSE 60 mg/dl (70-220); MAGNESIUM 1.8 mg/dl (1.7-2.5); POTASSIUM 4.7 mmol/L (3.5-5.1); SODIUM 139 mmol/L (135-144); TOTAL PROTEIN 6.1 g/dl (6.1-8.1)
[2019-05-07] MEDS: NIFEdipine (XL) 30 MG TAB PO ×2 (08:42→21:35)
[2019-05-07] MEDS: LISINOPRIL 5 MG TAB PO (08:42)
[2019-05-07] MEDS: ASPIRIN (EC) 81 MG TAB PO (08:42)
[2019-05-07] MEDS ORDERED: SODIUM CHLORIDE 0.9% 1L BAG IV (10:00)
[2019-05-07] MEDS ORDERED: HEPARIN 1000 UNITS/ML 10 ML INJ CATHETER (10:00)
[2019-05-07] MEDS ORDERED: ALBUMIN HUMAN 25% 100 ML IV (10:00)
[2019-05-07 11:13] LABS: PARTIAL THROMBOPLASTIN TIME 47.3 Sec (23.0-35.0)
[2019-05-07] MEDS: ACETAMINOPHEN 325 MG TAB PO (14:13)
[2019-05-08 06:50] LABS: ADD MAN DIFF? NO
[2019-05-08 06:57] LABS: BASOPHIL # 0.1 10^3/ul (0.0-0.1); EOSINOPHILS # 0.5 10^3/ul (0.0-0.5); EOSINOPHILS % 5.4 % (0.0-7.0); HEMATOCRIT 27.2 % (42.0-52.0); HEMOGLOBIN 8.7 g/dl (14.0-18.0); LYMPHOCYTES # 0.8 10^3/ul (0.8-2.9); LYMPHOCYTES % 9.6 % (15.0-51.0); MEAN CORPUSCULAR HEMOGLOBIN 27.7 pg (29.0-33.0); MEAN CORPUSCULAR VOLUME 86.6 fl (82.0-101.0); MEAN PLATELET VOLUME 10.3 fl (7.4-10.4); MONOCYTE # 0.8 10^3/ul (0.3-0.9); NEUTROPHILS % 71.5 % (39.0-77.0); PLATELET COUNT 147 10^3/UL (140-415); RED BLOOD COUNT 3.14 10^6/ul (4.70-6.10); RED CELL DISTRIBUTION WIDTH 14.1 % (11.5-14.5)
[2019-05-08 06:57] LABS: WHITE BLOOD COUNT 8.3 10^3/ul (4.8-10.8)
[2019-05-08 07:20] LABS: ANION GAP 6 (5-13); BLOOD UREA NITROGEN 21 mg/dl (7-20); CALCIUM 8.3 mg/dl (8.4-10.2); CARBON DIOXIDE 24 mmol/L (21-31); CHLORIDE 108 mmol/L (97-110); Estimated GFR 12 mL/min (>60); GLUCOSE 65 mg/dl (70-220); MAGNESIUM 1.9 mg/dl (1.7-2.5); PHOSPHORUS 4.4 mg/dl (2.5-4.9); POTASSIUM 4.8 mmol/L (3.5-5.1); SODIUM 138 mmol/L (135-144)
[2019-05-08] MEDS ORDERED: LIDOCAINE 1%/EPI (1:100,000) (MDV) 20 ML (07:27)
[2019-05-08] MEDS ORDERED: MIDAZOLAM 1 MG/ML 2 ML INJ (07:59)
[2019-05-08] MEDS ORDERED: FENTAnyl 50 MCG/ML VIAL (07:59)
[2019-05-08] MEDS ORDERED: HEPARIN 1000 UNITS/ML 10 ML INJ (08:12)
[2019-05-08] MEDS ORDERED: SOD CHLORIDE 0.9% 500 ML (08:20)
[2019-05-08] MEDS: NIFEdipine (XL) 30 MG TAB PO ×2 (09:00→20:33)
[2019-05-08] MEDS: LISINOPRIL 5 MG TAB PO (09:00)
[2019-05-08] MEDS: ASPIRIN (EC) 81 MG TAB PO (09:54)
[2019-05-08] MEDS: ALTEPLASE (CATHFLO) 2 MG INJ CATHETER (18:10)
[2019-05-09 07:25] LABS: ADD MAN DIFF? NO
[2019-05-09 07:35] LABS: WHITE BLOOD COUNT 7.5 10^3/ul (4.8-10.8)
[2019-05-09 07:35] LABS: BASOPHIL # 0.1 10^3/ul (0.0-0.1); BASOPHILS % 0.7 % (0.0-2.0); EOSINOPHILS # 0.3 10^3/ul (0.0-0.5); EOSINOPHILS % 3.7 % (0.0-7.0); HEMATOCRIT 28.6 % (42.0-52.0); LYMPHOCYTES # 0.9 10^3/ul (0.8-2.9); MEAN CORPUSCULAR HEMOGLOBIN 27.4 pg (29.0-33.0); MEAN CORPUSCULAR HGB CONC 31.5 g/dl (32.0-37.0); MEAN CORPUSCULAR VOLUME 87.2 fl (82.0-101.0); MEAN PLATELET VOLUME 10.3 fl (7.4-10.4); MONOCYTE # 0.8 10^3/ul (0.3-0.9); MONOCYTES % 10.3 % (0.0-11.0); NEUTROPHIL # 5.4 10^3/ul (1.6-7.5); NEUTROPHILS % 71.6 % (39.0-77.0); PLATELET COUNT 154 10^3/UL (140-415); RED BLOOD COUNT 3.28 10^6/ul (4.70-6.10); RED CELL DISTRIBUTION WIDTH 14.2 % (11.5-14.5)
[2019-05-09 07:56] LABS: ANION GAP 7 (5-13); BLOOD UREA NITROGEN 13 mg/dl (7-20); CARBON DIOXIDE 27 mmol/L (21-31); CHLORIDE 106 mmol/L (97-110); CREATININE 3.25 mg/dl (0.61-1.24); Estimated GFR 20 mL/min (>60); GLUCOSE 79 mg/dl (70-220); POTASSIUM 4.1 mmol/L (3.5-5.1); SODIUM 140 mmol/L (135-144)
[2019-05-09 08:03] LABS: PHOSPHORUS 3.4 mg/dl (2.5-4.9)
[2019-05-09 08:03] LABS: MAGNESIUM 1.8 mg/dl (1.7-2.5)
[2019-05-09] MEDS: ACETAMINOPHEN 325 MG TAB PO (09:09)
[2019-05-09] MEDS: NIFEdipine (XL) 30 MG TAB PO (09:10)
[2019-05-09] MEDS: ASPIRIN (EC) 81 MG TAB PO (09:10)
[2019-05-09] MEDS: LISINOPRIL 5 MG TAB PO (09:10)
== END 2019-05-09 18:52 ==
LOC: TEL 05-09 08:22 → E/R 18:46 → TEL 23:58
PROVIDERS: Internal Medicine
DX: T82.41XA Breakdown (mechanical) of vascular dialysis catheter, initial encounter (principal); I12.0 Hypertensive chronic kidney disease with stage 5 chronic kidney disease or end stage renal disease; E11.22 Type 2 diabetes mellitus with diabetic chronic kidney disease; N18.6 End stage renal disease; Z99.2 Dependence on renal dialysis; D63.8 Anemia in other chronic diseases classified elsewhere; Z86.73 Personal history of transient ischemic attack (TIA), and cerebral infarction without residual deficits; Y84.1 Kidney dialysis as the cause of abnormal reaction of the patient, or of later complication, without mention of misadventure at the time of the procedure
CPT/HCPCS: 36415; 36561; 36590; 70450; 71045; 80048; 80053; 81003; 82962; 83605; 83735; 84100; 84484; 85025; 85610; 85730; 87081; 90935; 93005; 96374; 96375; 99285-25; G0378

== ENCOUNTER 2019-05-15 18:58 | Inpatient (IN) | payer OTHER ==
[2019-05-15 19:47] LABS: ADD MAN DIFF? NO
[2019-05-15 19:51] LABS: BASOPHIL # 0.1 10^3/ul (0.0-0.1); BASOPHILS % 1.6 % (0.0-2.0); EOSINOPHILS # 0.2 10^3/ul (0.0-0.5); EOSINOPHILS % 3.7 % (0.0-7.0); HEMATOCRIT 34.4 % (42.0-52.0); LYMPHOCYTES # 1.1 10^3/ul (0.8-2.9); LYMPHOCYTES % 20.7 % (15.0-51.0); MEAN CORPUSCULAR HEMOGLOBIN 27.5 pg (29.0-33.0); MEAN PLATELET VOLUME 10.4 fl (7.4-10.4); MONOCYTE # 0.7 10^3/ul (0.3-0.9); MONOCYTES % 12.8 % (0.0-11.0); NEUTROPHIL # 3.3 10^3/ul (1.6-7.5); NEUTROPHILS % 59.7 % (39.0-77.0); PLATELET COUNT 154 10^3/UL (140-415); RED CELL DISTRIBUTION WIDTH 14.9 % (11.5-14.5)
[2019-05-15 19:51] LABS: WHITE BLOOD COUNT 5.5 10^3/ul (4.8-10.8)
[2019-05-15 20:08] LABS: ALANINE AMINOTRANSFERASE 18 IU/L (13-69); ALBUMIN/GLOBULIN RATIO 0.78; ALKALINE PHOSPHATASE 124 IU/L (42-121); ANION GAP 6 (5-13); ASPARTATE AMINO TRANSFERASE 23 IU/L (15-46); BILIRUBIN,INDIRECT 0.3 mg/dl (0-1.1); BILIRUBIN,TOTAL 0.3 mg/dl (0.2-1.3); BLOOD UREA NITROGEN 19 mg/dl (7-20); CALCIUM 8.5 mg/dl (8.4-10.2); CARBON DIOXIDE 26 mmol/L (21-31); CHLORIDE 106 mmol/L (97-110); CREATININE 3.55 mg/dl (0.61-1.24); Estimated GFR 18 mL/min (>60); GLUCOSE 98 mg/dl (70-220); LIPASE 56 U/L (23-300); POTASSIUM 3.6 mmol/L (3.5-5.1); SODIUM 138 mmol/L (135-144); TOTAL PROTEIN 6.8 g/dl (6.1-8.1)
[2019-05-15 20:12] LABS: INR 1.15; PROTIME 14.8 Sec (11.9-14.9); PT RATIO 1.2
[2019-05-15 20:13] LABS: PARTIAL THROMBOPLASTIN TIME 37.5 Sec (23.0-35.0)
[2019-05-15 20:19] LABS: TROPONIN-I < 0.012 ng/ml (0.000-0.120)
[2019-05-15] MEDS ORDERED: NACL 0.9% 3 ML SYG IV (20:30)
[2019-05-15] MEDS ORDERED: ONDANSETRON 4 MG INJ IV (20:30)
[2019-05-15] MEDS ORDERED: ACETAMINOPHEN 325 MG TAB PO ×2 (20:30→21:00)
[2019-05-15] MEDS ORDERED: DOCUSATE SODIUM 100 MG CAP PO (20:30)
[2019-05-15] MEDS ORDERED: BISACODYL (EC) 5 MG TAB PO (20:30)
[2019-05-15] MEDS ORDERED: HYDROCODONE/APAP (5/325) TAB PO (21:00)
[2019-05-15] MEDS ORDERED: LORAZEPAM 2 MG INJ (21:41)
[2019-05-15] MEDS: LORAZEPAM 2 MG INJ IV (21:42)
[2019-05-15] MEDS ORDERED: ALBUMIN HUMAN 25% 100 ML IV (23:00)
[2019-05-15] MEDS ORDERED: SODIUM CHLORIDE 0.9% 1L BAG IV (23:00)
[2019-05-16] MEDS: MEGESTROL (40 MG/ML) 10ML CUP PO ×3 (00:06→21:00)
[2019-05-16] MEDS: NIFEdipine (XL) 30 MG TAB PO ×3 (00:07→21:00)
[2019-05-16] MEDS: SOD CHLORIDE 0.9% 1,000 ML IV (00:14)
[2019-05-16] MEDS: hydrALAzine 20 MG INJ IV (00:24)
[2019-05-16 06:23] LABS: ADD MAN DIFF? NO
[2019-05-16 06:28] LABS: WHITE BLOOD COUNT 7.3 10^3/ul (4.8-10.8)
[2019-05-16 06:28] LABS: BASOPHIL # 0.1 10^3/ul (0.0-0.1); BASOPHILS % 1.1 % (0.0-2.0); EOSINOPHILS # 0.3 10^3/ul (0.0-0.5); HEMATOCRIT 34.7 % (42.0-52.0); HEMOGLOBIN 11.1 g/dl (14.0-18.0); LYMPHOCYTES # 1.3 10^3/ul (0.8-2.9); LYMPHOCYTES % 17.9 % (15.0-51.0); MEAN CORPUSCULAR HEMOGLOBIN 27.8 pg (29.0-33.0); MEAN PLATELET VOLUME 10.5 fl (7.4-10.4); MONOCYTE # 0.9 10^3/ul (0.3-0.9); MONOCYTES % 12.5 % (0.0-11.0); NEUTROPHIL # 4.6 10^3/ul (1.6-7.5); NEUTROPHILS % 62.7 % (39.0-77.0); PLATELET COUNT 141 10^3/UL (140-415); RED BLOOD COUNT 3.99 10^6/ul (4.70-6.10); RED CELL DISTRIBUTION WIDTH 14.7 % (11.5-14.5)
[2019-05-16 06:53] LABS: ALANINE AMINOTRANSFERASE 19 IU/L (13-69); ALBUMIN 2.6 g/dl (3.3-4.9); ALBUMIN/GLOBULIN RATIO 0.76; ALKALINE PHOSPHATASE 115 IU/L (42-121); ANION GAP 5 (5-13); ASPARTATE AMINO TRANSFERASE 23 IU/L (15-46); BILIRUBIN,INDIRECT 0.3 mg/dl (0-1.1); BILIRUBIN,TOTAL 0.3 mg/dl (0.2-1.3); BLOOD UREA NITROGEN 20 mg/dl (7-20); CALCIUM 8.4 mg/dl (8.4-10.2); CARBON DIOXIDE 23 mmol/L (21-31); CHLORIDE 109 mmol/L (97-110); CREATININE 3.37 mg/dl (0.61-1.24); Estimated GFR 19 mL/min (>60); GLUCOSE 84 mg/dl (70-220); MAGNESIUM 1.8 mg/dl (1.7-2.5); POTASSIUM 3.6 mmol/L (3.5-5.1); SODIUM 137 mmol/L (135-144)
[2019-05-16] MEDS: ASPIRIN 81 MG TAB PO ×2 (08:47→09:00)
[2019-05-16] MEDS: MULTIVIT/CA CARB/B CMPLX/FA TAB PO (08:47)
[2019-05-16] MEDS: LISINOPRIL 5 MG TAB PO (08:48)
[2019-05-16] MEDS: MIDAZOLAM 1 MG/ML 2 ML INJ (09:46)
[2019-05-16] MEDS: FENTAnyl 50 MCG/ML VIAL (09:46)
[2019-05-16] MEDS: LIDOCAINE 1% (MPF) 5 ML VIAL (09:49)
[2019-05-16] MEDS: HEPARIN 1000 UNITS/ML 10 ML INJ (09:51)
[2019-05-16] MEDS: HYDROCODONE/APAP (5/325) TAB PO (16:49)
[2019-05-16 18:49] LABS: ADD UMIC YES; UR AMORPHOUS CRYSTAL FEW /HPF (NONE SEEN); UR ASCORBIC ACID NEGATIVE (NEGATIVE); UR BACTERIA FEW /HPF (NONE SEEN); UR BILIRUBIN (Dip) NEGATIVE (NEGATIVE); UR BLOOD (Dip) 1+ mg/dL (NEGATIVE); UR CLARITY SLIGHTLY CLOUDY (CLEAR); UR COLOR AMBER (YELLOW); UR GLUCOSE (Dip) 1+ mg/dL (NEGATIVE); UR KETONES (Dip) NEGATIVE (NEGATIVE); UR LEUKOCYTE ESTERASE (Dip) NEGATIVE Leu/ul (NEGATIVE); UR NITRITE (Dip) NEGATIVE (NEGATIVE); UR RBC 4 /HPF (0-5); UR SPECIFIC GRAVITY (Dip) 1.023 (1.003-1.030); UR TOTAL PROTEIN (Dip) 3+ mg/dl (NEGATIVE); UR UROBILINOGEN (Dip) NEGATIVE (NEGATIVE); UR WBC 6 /HPF (0-5)
[2019-05-16] MEDS: ALTEPLASE (CATHFLO) 2 MG INJ CATHETER (23:26)
[2019-05-17] MEDS: HYDROCODONE/APAP (5/325) TAB PO ×4 (03:48→23:12)
[2019-05-17] MEDS: hydrALAzine 20 MG INJ IV (07:48)
[2019-05-17] MEDS: MEGESTROL (40 MG/ML) 10ML CUP PO ×2 (10:09→23:11)
[2019-05-17] MEDS: MULTIVIT/CA CARB/B CMPLX/FA TAB PO (10:09)
[2019-05-17] MEDS: ASPIRIN 81 MG TAB PO (10:09)
[2019-05-17] MEDS: LISINOPRIL 5 MG TAB PO (10:10)
[2019-05-17] MEDS: NIFEdipine (XL) 30 MG TAB PO ×2 (10:10→23:13)
[2019-05-17 14:45] LABS: ADD MAN DIFF? NO
[2019-05-17 14:47] LABS: BASOPHIL # 0.1 10^3/ul (0.0-0.1); BASOPHILS % 1.2 % (0.0-2.0); EOSINOPHILS # 0.3 10^3/ul (0.0-0.5); EOSINOPHILS % 4.2 % (0.0-7.0); HEMATOCRIT 33.4 % (42.0-52.0); HEMOGLOBIN 10.6 g/dl (14.0-18.0); LYMPHOCYTES # 1.1 10^3/ul (0.8-2.9); LYMPHOCYTES % 15.6 % (15.0-51.0); MEAN CORPUSCULAR HEMOGLOBIN 27.7 pg (29.0-33.0); MEAN CORPUSCULAR HGB CONC 31.7 g/dl (32.0-37.0); MEAN CORPUSCULAR VOLUME 87.2 fl (82.0-101.0); MEAN PLATELET VOLUME 11.1 fl (7.4-10.4); MONOCYTES % 13.8 % (0.0-11.0); NEUTROPHIL # 4.7 10^3/ul (1.6-7.5); NEUTROPHILS % 64.5 % (39.0-77.0); PLATELET COUNT 177 10^3/UL (140-415); RED BLOOD COUNT 3.83 10^6/ul (4.70-6.10); RED CELL DISTRIBUTION WIDTH 15.3 % (11.5-14.5)
[2019-05-17 14:47] LABS: WHITE BLOOD COUNT 7.3 10^3/ul (4.8-10.8)
[2019-05-17 15:09] LABS: PHOSPHORUS 3.5 mg/dl (2.5-4.9)
[2019-05-17 15:09] LABS: MAGNESIUM 1.8 mg/dl (1.7-2.5)
[2019-05-17 15:11] LABS: ANION GAP 6 (5-13); BLOOD UREA NITROGEN 14 mg/dl (7-20); CALCIUM 8.3 mg/dl (8.4-10.2); CARBON DIOXIDE 26 mmol/L (21-31); CHLORIDE 107 mmol/L (97-110); CREATININE 2.91 mg/dl (0.61-1.24); Estimated GFR 23 mL/min (>60); GLUCOSE 86 mg/dl (70-220); POTASSIUM 3.5 mmol/L (3.5-5.1); SODIUM 139 mmol/L (135-144)
[2019-05-17 15:35] LABS: PROSTATE SPECIFIC ANTIGEN 0.7 ng/ml (0.0-4.0)
[2019-05-17] MEDS: LORAZEPAM 2 MG INJ IV (19:13)
[2019-05-17] MEDS: HEPARIN 1000 UNITS/ML 10 ML INJ CATHETER (22:33)
[2019-05-18] MEDS: MULTIVIT/CA CARB/B CMPLX/FA TAB PO (10:04)
[2019-05-18] MEDS: MEGESTROL (40 MG/ML) 10ML CUP PO (10:04)
[2019-05-18] MEDS: ASPIRIN 81 MG TAB PO (10:04)
[2019-05-18] MEDS: LISINOPRIL 5 MG TAB PO (10:05)
[2019-05-18] MEDS: NIFEdipine (XL) 30 MG TAB PO (10:05)
== END 2019-05-18 18:04 | DRG 314 ==
LOC: E/R 18:58 → TEL 20:28
PROC: 5A1D70Z Performance of Urinary Filtration, Intermittent, Less than 6 Hours Per Day (ICD-10-PCS; 2019-05-15)
PROC: 5A1D70Z Performance of Urinary Filtration, Intermittent, Less than 6 Hours Per Day (ICD-10-PCS; principal; 2019-05-16)
DX: T82.41XA Breakdown (mechanical) of vascular dialysis catheter, initial encounter (principal); N18.6 End stage renal disease; I12.0 Hypertensive chronic kidney disease with stage 5 chronic kidney disease or end stage renal disease; I69.351 Hemiplegia and hemiparesis following cerebral infarction affecting right dominant side; Y84.8 Other medical procedures as the cause of abnormal reaction of the patient, or of later complication, without mention of misadventure at the time of the procedure; Y92.10 Unspecified residential institution as the place of occurrence of the external cause; E11.22 Type 2 diabetes mellitus with diabetic chronic kidney disease; Z99.2 Dependence on renal dialysis; Z79.4 Long term (current) use of insulin; D63.8 Anemia in other chronic diseases classified elsewhere; Z79.82 Long term (current) use of aspirin
CPT/HCPCS: 36415; 36581; 71045; 80048; 80053; 81001; 83690; 83735; 84100; 84153; 84154; 84484; 85025; 85610; 85730; 87086; 90935; 93005; 99217; 99285-25

== ENCOUNTER 2019-06-11 13:31 | Inpatient (IN) | payer OTHER ==
[2019-06-11 14:11] LABS: ADD MAN DIFF? NO
[2019-06-11 14:18] LABS: BASOPHILS % 0.4 % (0.0-2.0); EOSINOPHILS # 0.2 10^3/ul (0.0-0.5); EOSINOPHILS % 2.7 % (0.0-7.0); HEMATOCRIT 33.1 % (42.0-52.0); HEMOGLOBIN 10.1 g/dl (14.0-18.0); LYMPHOCYTES # 1.6 10^3/ul (0.8-2.9); LYMPHOCYTES % 19.7 % (15.0-51.0); MEAN CORPUSCULAR HEMOGLOBIN 27.9 pg (29.0-33.0); MEAN CORPUSCULAR HGB CONC 30.5 g/dl (32.0-37.0); MEAN CORPUSCULAR VOLUME 91.4 fl (82.0-101.0); MEAN PLATELET VOLUME 10.5 fl (7.4-10.4); MONOCYTE # 0.7 10^3/ul (0.3-0.9); MONOCYTES % 8.7 % (0.0-11.0); NEUTROPHIL # 5.4 10^3/ul (1.6-7.5); NEUTROPHILS % 67.7 % (39.0-77.0); PLATELET COUNT 162 10^3/UL (140-415); RED BLOOD COUNT 3.62 10^6/ul (4.70-6.10); RED CELL DISTRIBUTION WIDTH 15.3 % (11.5-14.5)
[2019-06-11 14:18] LABS: WHITE BLOOD COUNT 7.9 10^3/ul (4.8-10.8)
[2019-06-11] MEDS: SOD CHLORIDE 0.9% 500 ML IV ×2 (14:37→15:26)
[2019-06-11 14:38] LABS: ALANINE AMINOTRANSFERASE 18 IU/L (13-69); ALBUMIN 2.9 g/dl (3.3-4.9); ALBUMIN/GLOBULIN RATIO 0.82; ALKALINE PHOSPHATASE 78 IU/L (42-121); ANION GAP 7 (5-13); ASPARTATE AMINO TRANSFERASE 21 IU/L (15-46); BILIRUBIN,INDIRECT 0.4 mg/dl (0-1.1); BILIRUBIN,TOTAL 0.4 mg/dl (0.2-1.3); BLOOD UREA NITROGEN 35 mg/dl (7-20); CALCIUM 8.7 mg/dl (8.4-10.2); CARBON DIOXIDE 25 mmol/L (21-31); CHLORIDE 106 mmol/L (97-110); CREATININE 3.39 mg/dl (0.61-1.24); Estimated GFR 19 mL/min (>60); GLUCOSE 142 mg/dl (70-220); POTASSIUM 4.2 mmol/L (3.5-5.1); SODIUM 138 mmol/L (135-144); TOTAL PROTEIN 6.4 g/dl (6.1-8.1)
[2019-06-11 14:46] LABS: INR 1.16; PROTIME 14.9 Sec (11.9-14.9); PT RATIO 1.2
[2019-06-11 14:47] LABS: PARTIAL THROMBOPLASTIN TIME 34.3 Sec (23.0-35.0)
[2019-06-11 14:48] LABS: TROPONIN-I < 0.012 ng/ml (0.000-0.120)
[2019-06-11] MEDS ORDERED: ACETAMINOPHEN 325 MG TAB PO (16:00)
[2019-06-11] MEDS ORDERED: ONDANSETRON 4 MG INJ IV ×2 (16:00→16:30)
[2019-06-11] MEDS ORDERED: NACL 0.9% 3 ML SYG IV (16:30)
[2019-06-11 18:05] LABS: LACTIC ACID 1.2 mmol/L (0.5-2.0)
[2019-06-11] MEDS ORDERED: HEPARIN 5,000 UNIT/1 ML VIAL SC (21:00)
[2019-06-11] MEDS: ATORVASTATIN 40 MG TAB PO (22:07)
[2019-06-11] MEDS: TAMSULOSIN (SR) 0.4 MG CAP PO (22:07)
[2019-06-11 23:22] LABS: LACTIC ACID 1.1 mmol/L (0.5-2.0)
[2019-06-11] MEDS ORDERED: SODIUM CHLORIDE 0.9% 1L BAG IV (23:30)
[2019-06-12] MEDS: hydrALAzine 20 MG INJ IV ×2 (02:25→20:32)
[2019-06-12] MEDS ORDERED: GLUCAGON 1 MG INJ IM (05:30)
[2019-06-12] MEDS ORDERED: DEXTROSE 50% 50 ML SYRINGE IV ×2 (05:30)
[2019-06-12] MEDS ORDERED: GLUCOSE GEL 15 GRAM TUBE BUCCAL (05:30)
[2019-06-12] MEDS ORDERED: GLUCOSE GEL 15 GRAM TUBE PO ×2 (05:30)
[2019-06-12 05:47] LABS: ADD MAN DIFF? NO
[2019-06-12 05:50] LABS: WHITE BLOOD COUNT 8.5 10^3/ul (4.8-10.8)
[2019-06-12 05:50] LABS: BASOPHILS % 0.5 % (0.0-2.0); EOSINOPHILS # 0.3 10^3/ul (0.0-0.5); EOSINOPHILS % 3.1 % (0.0-7.0); HEMATOCRIT 32.3 % (42.0-52.0); HEMOGLOBIN 10.1 g/dl (14.0-18.0); LYMPHOCYTES # 1.7 10^3/ul (0.8-2.9); LYMPHOCYTES % 20.5 % (15.0-51.0); MEAN CORPUSCULAR HEMOGLOBIN 28.9 pg (29.0-33.0); MEAN CORPUSCULAR HGB CONC 31.3 g/dl (32.0-37.0); MEAN CORPUSCULAR VOLUME 92.6 fl (82.0-101.0); MEAN PLATELET VOLUME 11.5 fl (7.4-10.4); MONOCYTE # 0.8 10^3/ul (0.3-0.9); MONOCYTES % 9.5 % (0.0-11.0); NEUTROPHIL # 5.6 10^3/ul (1.6-7.5); NEUTROPHILS % 65.9 % (39.0-77.0); PLATELET COUNT 166 10^3/UL (140-415); RED BLOOD COUNT 3.49 10^6/ul (4.70-6.10); RED CELL DISTRIBUTION WIDTH 15.1 % (11.5-14.5)
[2019-06-12 06:25] LABS: PHOSPHORUS 3.7 mg/dl (2.5-4.9)
[2019-06-12 06:25] LABS: CHOL/HDL RATIO 6.6 RATIO; CHOLESTEROL 152 mg/dl (100-200); HDL CHOLESTEROL 23 mg/dl (28-71); LDL CHOLESTEROL,CALCULATED 97 mg/dl; MAGNESIUM 1.9 mg/dl (1.7-2.5); TRIGLYCERIDES 162 mg/dl (0-149)
[2019-06-12 06:34] LABS: ANION GAP 7 (5-13); BLOOD UREA NITROGEN 47 mg/dl (7-20); CALCIUM 8.7 mg/dl (8.4-10.2); CARBON DIOXIDE 25 mmol/L (21-31); CHLORIDE 111 mmol/L (97-110); CREATININE 3.55 mg/dl (0.61-1.24); Estimated GFR 18 mL/min (>60); GLUCOSE 100 mg/dl (70-220); POTASSIUM 4.2 mmol/L (3.5-5.1); SODIUM 143 mmol/L (135-144)
[2019-06-12] MEDS: ACCU-CHEK XX (06:39)
[2019-06-12 07:00] LABS: HEMOGLOBIN A1C 4.8 % (0-5.9)
[2019-06-12] MEDS: ASPIRIN 81 MG TAB PO (09:59)
[2019-06-12] MEDS: MULTIVIT/CA CARB/B CMPLX/FA TAB PO (09:59)
[2019-06-12 12:43] LABS: HEPATITIS B SURFACE ANTIGEN NEGATIVE (NEGATIVE)
[2019-06-12] MEDS: HEPARIN 1000 UNITS/ML 10 ML INJ CATHETER (14:47)
[2019-06-12 20:15] LABS: ADD UMIC YES; UR ASCORBIC ACID NEGATIVE (NEGATIVE); UR BACTERIA FEW /HPF (NONE SEEN); UR BILIRUBIN (Dip) NEGATIVE (NEGATIVE); UR BLOOD (Dip) 1+ mg/dL (NEGATIVE); UR CLARITY TURBID (CLEAR); UR COLOR YELLOW (YELLOW); UR GLUCOSE (Dip) NEGATIVE (NEGATIVE); UR KETONES (Dip) NEGATIVE (NEGATIVE); UR LEUKOCYTE ESTERASE (Dip) 3+ Leu/ul (NEGATIVE); UR NITRITE (Dip) NEGATIVE (NEGATIVE); UR NONSQUAMOUS EPITHELIAL CELL 1 /HPF (NONE SEEN); UR RBC 17 /HPF (0-5); UR SPECIFIC GRAVITY (Dip) 1.016 (1.003-1.030); UR SQUAMOUS EPITHELIAL CELL FEW /HPF (FEW); UR TOTAL PROTEIN (Dip) 3+ mg/dl (NEGATIVE); UR UROBILINOGEN (Dip) NEGATIVE (NEGATIVE); UR WBC > 182 /HPF (0-5)
[2019-06-12] MEDS: TAMSULOSIN (SR) 0.4 MG CAP PO (20:32)
[2019-06-12] MEDS: ATORVASTATIN 40 MG TAB PO (20:33)
[2019-06-12] MEDS: ACETAMINOPHEN 325 MG TAB PO (20:38)
[2019-06-13 05:22] LABS: ADD MAN DIFF? NO
[2019-06-13 05:25] LABS: WHITE BLOOD COUNT 7.3 10^3/ul (4.8-10.8)
[2019-06-13 05:25] LABS: BASOPHILS % 0.5 % (0.0-2.0); EOSINOPHILS # 0.2 10^3/ul (0.0-0.5); EOSINOPHILS % 3.3 % (0.0-7.0); HEMATOCRIT 32.1 % (42.0-52.0); HEMOGLOBIN 9.8 g/dl (14.0-18.0); LYMPHOCYTES # 1.8 10^3/ul (0.8-2.9); MEAN CORPUSCULAR HEMOGLOBIN 27.9 pg (29.0-33.0); MEAN CORPUSCULAR HGB CONC 30.5 g/dl (32.0-37.0); MEAN CORPUSCULAR VOLUME 91.5 fl (82.0-101.0); MEAN PLATELET VOLUME 11.3 fl (7.4-10.4); MONOCYTE # 0.7 10^3/ul (0.3-0.9); MONOCYTES % 10.1 % (0.0-11.0); NEUTROPHIL # 4.5 10^3/ul (1.6-7.5); NEUTROPHILS % 61.6 % (39.0-77.0); PLATELET COUNT 168 10^3/UL (140-415); RED BLOOD COUNT 3.51 10^6/ul (4.70-6.10); RED CELL DISTRIBUTION WIDTH 15.1 % (11.5-14.5)
[2019-06-13 05:52] LABS: PHOSPHORUS 3.1 mg/dl (2.5-4.9)
[2019-06-13 05:52] LABS: MAGNESIUM 2.1 mg/dl (1.7-2.5)
[2019-06-13 05:53] LABS: ANION GAP 3 (5-13); BLOOD UREA NITROGEN 36 mg/dl (7-20); CALCIUM 8.7 mg/dl (8.4-10.2); CARBON DIOXIDE 32 mmol/L (21-31); CHLORIDE 105 mmol/L (97-110); CREATININE 2.78 mg/dl (0.61-1.24); Estimated GFR 24 mL/min (>60); GLUCOSE 106 mg/dl (70-220); SODIUM 140 mmol/L (135-144)
[2019-06-13] MEDS: ASPIRIN 81 MG TAB PO (08:37)
[2019-06-13] MEDS: MULTIVIT/CA CARB/B CMPLX/FA TAB PO (08:39)
[2019-06-13] MEDS: LISINOPRIL 5 MG TAB PO (08:39)
[2019-06-13] MEDS: CEFTRIAXONE 1 GM/50 ML (PMX) 50 ML IVPB (15:37)
[2019-06-13] MEDS: LACTULOSE 30ML CUP PO (16:09)
[2019-06-13] MEDS: ATORVASTATIN 40 MG TAB PO (21:08)
[2019-06-13] MEDS: TAMSULOSIN (SR) 0.4 MG CAP PO (21:08)
[2019-06-13] MEDS: SENNA TAB PO (21:09)
[2019-06-14 06:04] LABS: ADD MAN DIFF? NO
[2019-06-14 06:16] LABS: BASOPHILS % 0.4 % (0.0-2.0); EOSINOPHILS # 0.3 10^3/ul (0.0-0.5); EOSINOPHILS % 2.8 % (0.0-7.0); HEMATOCRIT 32.1 % (42.0-52.0); LYMPHOCYTES # 1.4 10^3/ul (0.8-2.9); LYMPHOCYTES % 16.1 % (15.0-51.0); MEAN CORPUSCULAR HEMOGLOBIN 28.8 pg (29.0-33.0); MEAN CORPUSCULAR HGB CONC 31.2 g/dl (32.0-37.0); MEAN CORPUSCULAR VOLUME 92.5 fl (82.0-101.0); MEAN PLATELET VOLUME 11.2 fl (7.4-10.4); MONOCYTE # 0.9 10^3/ul (0.3-0.9); MONOCYTES % 9.7 % (0.0-11.0); NEUTROPHIL # 6.3 10^3/ul (1.6-7.5); NEUTROPHILS % 70.3 % (39.0-77.0); PLATELET COUNT 162 10^3/UL (140-415); RED BLOOD COUNT 3.47 10^6/ul (4.70-6.10); RED CELL DISTRIBUTION WIDTH 14.9 % (11.5-14.5)
[2019-06-14 06:48] LABS: ANION GAP 7 (5-13); BLOOD UREA NITROGEN 48 mg/dl (7-20); CARBON DIOXIDE 28 mmol/L (21-31); CHLORIDE 104 mmol/L (97-110); CREATININE 3.59 mg/dl (0.61-1.24); Estimated GFR 18 mL/min (>60); GLUCOSE 108 mg/dl (70-220); POTASSIUM 4.3 mmol/L (3.5-5.1); SODIUM 139 mmol/L (135-144)
[2019-06-14 07:02] LABS: MAGNESIUM 2.3 mg/dl (1.7-2.5)
[2019-06-14 07:02] LABS: PHOSPHORUS 3.5 mg/dl (2.5-4.9)
[2019-06-14] MEDS: MULTIVIT/CA CARB/B CMPLX/FA TAB PO (09:23)
[2019-06-14] MEDS: ASPIRIN 81 MG TAB PO (09:23)
[2019-06-14] MEDS: LISINOPRIL 5 MG TAB PO (09:23)
[2019-06-14] MEDS: SENNA TAB PO ×2 (09:23→21:00)
[2019-06-14] MEDS: LACTULOSE 30ML CUP PO (09:23)
[2019-06-14] MEDS: MEROPENEM 500MG/50 ML (PMX) 50 ML IVPB (13:24)
[2019-06-14] MEDS: NIFEdipine (XL) 30 MG TAB PO (13:27)
[2019-06-14] MEDS: ALBUMIN HUMAN 25% 100 ML IV (14:34)
[2019-06-14] MEDS: HEPARIN 1000 UNITS/ML 10 ML INJ CATHETER (17:12)
[2019-06-14] MEDS: ATORVASTATIN 40 MG TAB PO (21:00)
[2019-06-14] MEDS: TAMSULOSIN (SR) 0.4 MG CAP PO (21:00)
[2019-06-14] MEDS ORDERED: MEROPENEM 1 GM/50ML(PMX) 50 ML IVPB (21:00)
[2019-06-14] MEDS: HYDROCODONE/APAP (5/325) TAB PO (21:03)
[2019-06-15] MEDS: SENNA TAB PO ×2 (09:00→20:28)
[2019-06-15] MEDS: ASPIRIN 81 MG TAB PO (09:46)
[2019-06-15] MEDS: LISINOPRIL 5 MG TAB PO (09:46)
[2019-06-15] MEDS: MULTIVIT/CA CARB/B CMPLX/FA TAB PO (09:46)
[2019-06-15] MEDS: MEROPENEM 500MG/50 ML (PMX) 50 ML IVPB (13:30)
[2019-06-15] MEDS: NIFEdipine (XL) 30 MG TAB PO (13:32)
[2019-06-15] MEDS: FLUCONAZOLE 200 MG TAB PO (15:27)
[2019-06-15] MEDS: ATORVASTATIN 40 MG TAB PO (20:27)
[2019-06-15] MEDS: HYDROCODONE/APAP (5/325) TAB PO (20:27)
[2019-06-15] MEDS: TAMSULOSIN (SR) 0.4 MG CAP PO (20:27)
[2019-06-15] MEDS: ZOLPIDEM 5 MG TAB PO (21:25)
[2019-06-16 04:59] LABS: ADD MAN DIFF? NO
[2019-06-16 05:00] LABS: BASOPHILS % 0.6 % (0.0-2.0); EOSINOPHILS # 0.3 10^3/ul (0.0-0.5); EOSINOPHILS % 3.6 % (0.0-7.0); HEMOGLOBIN 9.5 g/dl (14.0-18.0); LYMPHOCYTES # 1.7 10^3/ul (0.8-2.9); LYMPHOCYTES % 23.1 % (15.0-51.0); MEAN CORPUSCULAR HEMOGLOBIN 29.1 pg (29.0-33.0); MEAN CORPUSCULAR HGB CONC 31.7 g/dl (32.0-37.0); MEAN CORPUSCULAR VOLUME 91.7 fl (82.0-101.0); MEAN PLATELET VOLUME 11.1 fl (7.4-10.4); MONOCYTE # 0.8 10^3/ul (0.3-0.9); NEUTROPHIL # 4.4 10^3/ul (1.6-7.5); NEUTROPHILS % 61.1 % (39.0-77.0); PLATELET COUNT 164 10^3/UL (140-415); RED BLOOD COUNT 3.27 10^6/ul (4.70-6.10); RED CELL DISTRIBUTION WIDTH 14.6 % (11.5-14.5)
[2019-06-16 05:00] LABS: WHITE BLOOD COUNT 7.2 10^3/ul (4.8-10.8)
[2019-06-16 05:23] LABS: MAGNESIUM 2.4 mg/dl (1.7-2.5)
[2019-06-16 05:23] LABS: PHOSPHORUS 4.6 mg/dl (2.5-4.9)
[2019-06-16 05:25] LABS: ANION GAP 6 (5-13); BLOOD UREA NITROGEN 37 mg/dl (7-20); CARBON DIOXIDE 29 mmol/L (21-31); CHLORIDE 105 mmol/L (97-110); CREATININE 3.35 mg/dl (0.61-1.24); Estimated GFR 19 mL/min (>60); GLUCOSE 95 mg/dl (70-220); POTASSIUM 4.1 mmol/L (3.5-5.1); SODIUM 140 mmol/L (135-144)
[2019-06-16] MEDS: MULTIVIT/CA CARB/B CMPLX/FA TAB PO (09:57)
[2019-06-16] MEDS: SENNA TAB PO ×2 (09:58→21:18)
[2019-06-16] MEDS: FLUCONAZOLE 200 MG TAB PO (09:58)
[2019-06-16] MEDS: ASPIRIN 81 MG TAB PO (09:58)
[2019-06-16] MEDS: NIFEdipine (XL) 30 MG TAB PO (09:58)
[2019-06-16] MEDS: LISINOPRIL 5 MG TAB PO (09:59)
[2019-06-16] MEDS: MEROPENEM 500MG/50 ML (PMX) 50 ML IVPB (13:18)
[2019-06-16] MEDS: ZOLPIDEM 5 MG TAB PO (21:11)
[2019-06-16] MEDS: BISACODYL (EC) 5 MG TAB PO (21:18)
[2019-06-16] MEDS: ATORVASTATIN 40 MG TAB PO (21:18)
[2019-06-16] MEDS: TAMSULOSIN (SR) 0.4 MG CAP PO (21:18)
[2019-06-17] MEDS: NIFEdipine (XL) 30 MG TAB PO (09:00)
[2019-06-17] MEDS: LISINOPRIL 5 MG TAB PO (09:00)
[2019-06-17] MEDS: SENNA TAB PO ×2 (09:54→20:59)
[2019-06-17] MEDS: ASPIRIN 81 MG TAB PO (09:54)
[2019-06-17] MEDS: FLUCONAZOLE 200 MG TAB PO (09:54)
[2019-06-17] MEDS: MULTIVIT/CA CARB/B CMPLX/FA TAB PO (09:54)
[2019-06-17] MEDS: MEROPENEM 500MG/50 ML (PMX) 50 ML IVPB (12:05)
[2019-06-17] MEDS: LACTULOSE 30ML CUP PO (13:42)
[2019-06-17] MEDS: HEPARIN 1000 UNITS/ML 10 ML INJ CATHETER (19:12)
[2019-06-17] MEDS: TAMSULOSIN (SR) 0.4 MG CAP PO (20:58)
[2019-06-17] MEDS: ATORVASTATIN 40 MG TAB PO (20:58)
[2019-06-17] MEDS: ZOLPIDEM 5 MG TAB PO (21:00)
[2019-06-18 05:33] LABS: ADD MAN DIFF? NO
[2019-06-18 05:39] LABS: BASOPHILS % 0.4 % (0.0-2.0); EOSINOPHILS # 0.2 10^3/ul (0.0-0.5); EOSINOPHILS % 3.3 % (0.0-7.0); HEMATOCRIT 31.7 % (42.0-52.0); HEMOGLOBIN 10.1 g/dl (14.0-18.0); LYMPHOCYTES # 1.5 10^3/ul (0.8-2.9); LYMPHOCYTES % 21.8 % (15.0-51.0); MEAN CORPUSCULAR HEMOGLOBIN 28.8 pg (29.0-33.0); MEAN CORPUSCULAR HGB CONC 31.9 g/dl (32.0-37.0); MEAN CORPUSCULAR VOLUME 90.3 fl (82.0-101.0); MONOCYTE # 0.8 10^3/ul (0.3-0.9); MONOCYTES % 11.5 % (0.0-11.0); NEUTROPHIL # 4.4 10^3/ul (1.6-7.5); NEUTROPHILS % 62.6 % (39.0-77.0); PLATELET COUNT 183 10^3/UL (140-415); RED BLOOD COUNT 3.51 10^6/ul (4.70-6.10); RED CELL DISTRIBUTION WIDTH 14.5 % (11.5-14.5)
[2019-06-18 06:09] LABS: ALANINE AMINOTRANSFERASE 37 IU/L (13-69); ALBUMIN 3.1 g/dl (3.3-4.9); ALBUMIN/GLOBULIN RATIO 0.91; ALKALINE PHOSPHATASE 89 IU/L (42-121); ANION GAP 8 (5-13); ASPARTATE AMINO TRANSFERASE 27 IU/L (15-46); BILIRUBIN,INDIRECT 0.2 mg/dl (0-1.1); BILIRUBIN,TOTAL 0.2 mg/dl (0.2-1.3); BLOOD UREA NITROGEN 27 mg/dl (7-20); CALCIUM 8.7 mg/dl (8.4-10.2); CARBON DIOXIDE 29 mmol/L (21-31); CHLORIDE 99 mmol/L (97-110); CREATININE 3.04 mg/dl (0.61-1.24); Estimated GFR 21 mL/min (>60); GLUCOSE 112 mg/dl (70-220); POTASSIUM 3.6 mmol/L (3.5-5.1); SODIUM 136 mmol/L (135-144); TOTAL PROTEIN 6.5 g/dl (6.1-8.1)
[2019-06-18] MEDS: FLUCONAZOLE 200 MG TAB PO (09:32)
[2019-06-18] MEDS: SENNA TAB PO ×2 (09:32→21:00)
[2019-06-18] MEDS: MULTIVIT/CA CARB/B CMPLX/FA TAB PO (09:32)
[2019-06-18] MEDS: LISINOPRIL 5 MG TAB PO (09:33)
[2019-06-18] MEDS: ASPIRIN 81 MG TAB PO (09:33)
[2019-06-18] MEDS: NIFEdipine (XL) 30 MG TAB PO (09:34)
[2019-06-18] MEDS: MEROPENEM 500MG/50 ML (PMX) 50 ML IVPB (12:14)
[2019-06-18] MEDS: ZOLPIDEM 5 MG TAB PO (21:40)
[2019-06-18] MEDS: TAMSULOSIN (SR) 0.4 MG CAP PO (21:40)
[2019-06-18] MEDS: ATORVASTATIN 40 MG TAB PO (21:40)
[2019-06-19 05:43] LABS: ADD MAN DIFF? NO
[2019-06-19 05:46] LABS: BASOPHILS % 0.6 % (0.0-2.0); EOSINOPHILS # 0.3 10^3/ul (0.0-0.5); EOSINOPHILS % 3.6 % (0.0-7.0); HEMATOCRIT 31.8 % (42.0-52.0); HEMOGLOBIN 10.5 g/dl (14.0-18.0); LYMPHOCYTES # 1.7 10^3/ul (0.8-2.9); LYMPHOCYTES % 23.9 % (15.0-51.0); MEAN CORPUSCULAR HEMOGLOBIN 29.2 pg (29.0-33.0); MEAN CORPUSCULAR VOLUME 88.6 fl (82.0-101.0); MONOCYTE # 0.7 10^3/ul (0.3-0.9); MONOCYTES % 9.7 % (0.0-11.0); NEUTROPHIL # 4.4 10^3/ul (1.6-7.5); NEUTROPHILS % 61.9 % (39.0-77.0); PLATELET COUNT 181 10^3/UL (140-415); RED BLOOD COUNT 3.59 10^6/ul (4.70-6.10)
[2019-06-19 05:46] LABS: WHITE BLOOD COUNT 7.1 10^3/ul (4.8-10.8)
[2019-06-19 06:22] LABS: ALANINE AMINOTRANSFERASE 29 IU/L (13-69); ALBUMIN 3.5 g/dl (3.3-4.9); ALBUMIN/GLOBULIN RATIO 1.02; ALKALINE PHOSPHATASE 94 IU/L (42-121); ANION GAP 10 (5-13); ASPARTATE AMINO TRANSFERASE 28 IU/L (15-46); BILIRUBIN,INDIRECT 0.2 mg/dl (0-1.1); BILIRUBIN,TOTAL 0.2 mg/dl (0.2-1.3); BLOOD UREA NITROGEN 43 mg/dl (7-20); CALCIUM 8.8 mg/dl (8.4-10.2); CARBON DIOXIDE 28 mmol/L (21-31); CHLORIDE 98 mmol/L (97-110); CREATININE 3.92 mg/dl (0.61-1.24); Estimated GFR 16 mL/min (>60); GLUCOSE 109 mg/dl (70-220); POTASSIUM 3.7 mmol/L (3.5-5.1); SODIUM 136 mmol/L (135-144); TOTAL PROTEIN 6.9 g/dl (6.1-8.1)
[2019-06-19] MEDS: LISINOPRIL 5 MG TAB PO (08:43)
[2019-06-19] MEDS: ASPIRIN 81 MG TAB PO (08:43)
[2019-06-19] MEDS: NIFEdipine (XL) 30 MG TAB PO (08:43)
[2019-06-19] MEDS: MULTIVIT/CA CARB/B CMPLX/FA TAB PO (08:44)
[2019-06-19] MEDS: SENNA TAB PO (08:44)
[2019-06-19] MEDS: FLUCONAZOLE 200 MG TAB PO (08:44)
[2019-06-19] MEDS: HEPARIN 1000 UNITS/ML 10 ML INJ CATHETER (14:19)
[2019-06-19] MEDS: MEROPENEM 500MG/50 ML (PMX) 50 ML IVPB (14:50)
== END 2019-06-19 20:30 | DRG 314 ==
LOC: E/R 13:31 → PP2 15:56
PROC: 5A1D70Z Performance of Urinary Filtration, Intermittent, Less than 6 Hours Per Day (ICD-10-PCS; principal; 2019-06-12)
DX: I95.9 Hypotension, unspecified (principal); N18.6 End stage renal disease; I12.0 Hypertensive chronic kidney disease with stage 5 chronic kidney disease or end stage renal disease; I69.354 Hemiplegia and hemiparesis following cerebral infarction affecting left non-dominant side; N39.0 Urinary tract infection, site not specified; E11.22 Type 2 diabetes mellitus with diabetic chronic kidney disease; N40.0 Benign prostatic hyperplasia without lower urinary tract symptoms; B96.89 Other specified bacterial agents as the cause of diseases classified elsewhere; D63.1 Anemia in chronic kidney disease; K59.00 Constipation, unspecified; N28.89 Other specified disorders of kidney and ureter
CPT/HCPCS: 71045; 74176; 80048; 80053; 80061; 81001; 82962; 83036; 83605; 83735; 84100; 84484; 85025; 85610; 85730; 87040-91; 87086; 87340; 90935; 93005; 97110; 97162; 97530; 99285-25